=== PATIENT | female | born 1985 | race Two or more races ===

== ENCOUNTER 2020-06-10 10:51 | Outpatient (REF) | payer OTHER, SELFPAY ==
--- NOTE | 2020-06-10 | US_ITS ---
EXAMINATION: PELVIC ULTRASOUND CLINICAL INFORMATION: Fibroids COMPARISON: Previous CT of the abdomen and pelvis most recent March 2017 TECHNIQUE: Transabdominal and transvaginal pelvic ultrasound was performed. Transvaginal exam was performed for better visualization of the uterus and ovaries. FINDINGS: The uterus is anteverted and measures 9.6 x 5.4 x 6 cm in dimension. There are 2 small hypoechoic lesions in the anterior body of the uterus measuring 1.6 x 0.8 x 0.9 cm and in the posterior body of the uterus measuring 1.4 x 0.7 x 1.7 cm suggestive of small fibroids. No other focal uterine lesion is seen. Endometrial thickness is normal estimated at 0.8 cm. The cervix is normal. The right ovary is normal-appearing and measures 3.1 x 2.4 x 2 cm. The left ovary is slightly enlarged and measures 3.4 x 3.1 x 2.6 cm, volume 14 mL. There is a 2.7 x 1.8 x 1.7 cm minimally complex left ovarian cyst with cyst within cyst appearance and single thin septation. There is no fluid in the pelvis. US/US pelvic complete IMPRESSION: 2 small uterine fibroids. Slightly enlarged left ovary with 2.7 x 1.8 x 1.7 cm slightly complex cyst.
--- NOTE | 2020-06-10 | US_ITS ---
EXAMINATION: PELVIC ULTRASOUND CLINICAL INFORMATION: Fibroids COMPARISON: Previous CT of the abdomen and pelvis most recent March 2017 TECHNIQUE: Transabdominal and transvaginal pelvic ultrasound was performed. Transvaginal exam was performed for better visualization of the uterus and ovaries. FINDINGS: The uterus is anteverted and measures 9.6 x 5.4 x 6 cm in dimension. There are 2 small hypoechoic lesions in the anterior body of the uterus measuring 1.6 x 0.8 x 0.9 cm and in the posterior body of the uterus measuring 1.4 x 0.7 x 1.7 cm suggestive of small fibroids. No other focal uterine lesion is seen. Endometrial thickness is normal estimated at 0.8 cm. The cervix is normal. The right ovary is normal-appearing and measures 3.1 x 2.4 x 2 cm. The left ovary is slightly enlarged and measures 3.4 x 3.1 x 2.6 cm, volume 14 mL. There is a 2.7 x 1.8 x 1.7 cm minimally complex left ovarian cyst with cyst within cyst appearance and single thin septation. There is no fluid in the pelvis. US/US transvaginal IMPRESSION: 2 small uterine fibroids. Slightly enlarged left ovary with 2.7 x 1.8 x 1.7 cm slightly complex cyst.
== END 2020-06-10 10:52 | disposition home or self-care (01) ==
LOC: HO.US 10:51
PROVIDERS: PCP Internal Medicine Geriatric Medicine; Visit Provider Advanced Practice Midwife
DX: D25.9 Leiomyoma of uterus, unspecified (principal); N92.0 Excessive and frequent menstruation with regular cycle
CPT/HCPCS: 76830; 76856

== ENCOUNTER 2020-10-25 09:51 | Outpatient (REF) | payer OTHER, SELFPAY ==
--- NOTE | ~2020-10-25 | MM_ITS ---
EXAMINATION: MM DIAGNOSTIC DIGITAL BREAST TOMOSYNTHESIS, BILATERAL US TARGETED BREAST ULTRASOUND, RIGHT CLINICAL INFORMATION: Right breast lump 9 o'clock position. The lifetime risk of breast cancer based on the Tyrer-Cuzick Model is 14%. COMPARISON: Mammography: None TECHNIQUE: Digital breast tomosynthesis is performed in both the craniocaudal and mediolateral oblique views along with computer-aided detection (CAD). Synthesized 2D images are generated from the tomosynthesis. Targeted right breast ultrasound. FINDINGS: The breasts are heterogeneously dense, which may obscure small masses (ACR BI-RADS breast composition Category c). There are no significant masses, abnormal calcifications, or other abnormalities. Targeted right breast ultrasound was performed. At approximately 9 o'clock position in region of palpable abnormality, there are a few simple 4 mm cysts. No suspicious solid mass identified. No region of abnormal distal sound shadowing. Results are provided to the patient at time of visit by the technologist. MM/MM tomosynthesis diagnostic BI IMPRESSION: No specific mammographic or ultrasound findings to suggest malignancy. ASSESSMENT: BI-RADS 1: Negative. RECOMMENDATION: Clinical followup. This patient's information was entered into a reminder system with a target due date for their next mammogram.
--- NOTE | ~2020-10-25 | US_ITS ---
EXAMINATION: US DIAGNOSTIC ULTRASOUND BREAST, RIGHT CLINICAL INFORMATION: Lump 9:00 position. COMPARISON: Mammography of same day. TECHNIQUE: Ultrasound of the breast is performed with real-time javier scale imaging and color Doppler. FINDINGS: There is no focal suspicious finding. There is no solid mass, architectural abnormality, duct ectasia, or edema in the soft tissue planes. There are a few 4 mm simple cysts present in region of palpable abnormality. Results are discussed with the patient at time of visit. US/US breast RT limited IMPRESSION: No specific ultrasound findings to suggest malignancy. ASSESSMENT: BI-RADS 1: Negative RECOMMENDATION: Clinical follow-up .
== END 2020-10-25 09:52 | disposition home or self-care (01) ==
LOC: HO.MAMMO 09:51
PROVIDERS: Visit Provider Advanced Practice Midwife
DX: N63.15 Unspecified lump in the right breast, overlapping quadrants (principal)
CPT/HCPCS: 76642; 77062; 77066

== ENCOUNTER 2021-05-07 15:15 | Outpatient (REF) | payer OTHER, SELFPAY ==
--- NOTE | ~2021-05-07 | US_ITS ---
EXAMINATION: US THYROID CLINICAL INFORMATION: Nontoxic multinodular goiter. COMPARISON: None. TECHNIQUE: Linear transducer grayscale and color Doppler examination with attention to the region of the thyroid. FINDINGS: SIZE: Measurements of the thyroid lobes and nodules are given in sagittal, anteroposterior and transverse dimensions respectively. Right Thyroid Lobe: 4.19 x 1.23 x 1.39 cm, volume 3.76 mL. Parenchyma: The gland echotexture is homogeneous. Thyroid vascularity is normal. Left Thyroid Lobe: 4.22 x 1.17 x 1.55 cm, volume 4.00 mL. Parenchyma: The gland echotexture is homogeneous. Thyroid vascularity is normal. Isthmus: 0.26 cm in maximum AP dimension. Estimated total number of nodules greater than or equal to 1 cm: 0. [employer] nodules are described as follows: 1. Location: Right mid. Size: 0.63 x 0.37 x 0.37 cm, volume 0.05 mL. Nodule characteristics: Composition: Cystic(0). ACR TI-RADS total points: 0 ACR TI-RADS category: 1 2. Location: Right inferior. Size: 0.21 x 0.23 x 0.19 cm, volume 0.005 mL. Nodule characteristics: Composition: Cystic(0). ACR TI-RADS total points: 0 ACR TI-RADS category: 1 NODES: No lymphadenopathy is seen in the tissue surrounding the thyroid gland. US/US thyroid IMPRESSION: Homogeneous thyroid parenchyma with normal vascularity. No thyromegaly. Right-sided thyroid nodules measuring up to 0.6 cm with ultrasound characteristics consistent with TI-RADS category 1. No follow-up recommended. ACR TI-RADS RECOMMENDATION REFERENCE: Ultrasound-guided fine-needle aspiration, followup ultrasound, no further follow up. * TR1 (0 point) and TR 2 (2 points): No FNA or follow up * TR3 (3 points): FNA if more than or equal to 2.5 cm in maximum dimension, followup ultrasound in 1, 3 and 5 years if 1.5 to 2.4 cm in maximum dimension. * TR4 (4-6 points): FNA if more than or equal to 1.5 cm in maximum dimension, followup ultrasound in 1, 2, 3 and 5 years if 1 to 1.4 cm in maximum dimension. * TR5 (more than or equal to 7 points): FNA if more than or equal to 1 cm in maximum dimension, followup ultrasound every year for 5 years if 0.5 to 0.9 cm in maximum dimension. * TR3, TR4 or TR5 nodules that are below the size threshold for follow up receive no follow up.
== END 2021-05-07 15:16 | disposition home or self-care (01) ==
LOC: HO.HMGCX 15:15
PROVIDERS: PCP Internal Medicine Geriatric Medicine; Visit Provider Internal Medicine Geriatric Medicine
DX: E04.1 Nontoxic single thyroid nodule (principal)
CPT/HCPCS: 76536

== ENCOUNTER 2021-09-10 15:36 | Outpatient (REF) | payer MEDICAID, SELFPAY ==
--- NOTE | ~2021-09-10 | US_ITS ---
EXAMINATION: US PELVIS CLINICAL INFORMATION: Excessive and frequent menses. History of IUD. COMPARISON: Pelvic ultrasound from 06/10/2020 TECHNIQUE: Ultrasound of the pelvis is performed using both transabdominal and transvaginal transducers along with Doppler. Transvaginal imaging is performed due to inadequate visualization transabdominally. FINDINGS: UTERUS AND CERVIX The anteflexed, anteverted uterus measures 11.9 x 6 x 6.8 cm ([id number] x AP x transverse dimension). The cervix is normal, approximately 3.5 in length. A heterogeneously hypoechoic structure in the anterior uterine body, consistent with intramural leiomyoma, measures 1.3 x 0.6 x 0.8 cm (1.6 cm maximum dimension on 06/10/2020). A posterior uterine body leiomyoma measures 1.9 x 1.2 x 2 cm (previously 1.7 cm maximum dimension on 06/10/2020). The endometrium, which has normal echotexture, is 0.7 cm in AP thickness. No evidence of endometrial polyp or submucosal leiomyoma. In this patient with history of IUD placement, no intrauterine device is sonographically detected. ADNEXA: Normal. No adnexal masses. The right ovary is 2.9 x 1.2 x 2 cm, volume of 3.6 mL. The left ovary is 3.1 x 2.1 x 2.1 cm, volume of 7 mL. FREE FLUID: None. US/US pelvic and transvaginal IMPRESSION: * The two intramural leiomyomas of the uterus have not significantly changed in size compared to 06/10/2020. * The endometrium has a normal appearance. * Although there is history of intrauterine contraceptive device placement, no IUD is seen. * The ovaries are normal.
== END 2021-09-10 15:37 | disposition home or self-care (01) ==
LOC: HO.US 15:36
PROVIDERS: PCP Internal Medicine Geriatric Medicine; Visit Provider Advanced Practice Midwife
DX: N92.0 Excessive and frequent menstruation with regular cycle (principal); T83.32XA Displacement of intrauterine contraceptive device, initial encounter
CPT/HCPCS: 76830; 76856

== ENCOUNTER 2022-05-19 15:53 | Outpatient (REF) | payer MEDICAID, SELFPAY | END 2022-05-19 15:54 | disposition home or self-care (01) | LOC: HO.MAMMO 15:53 | PROVIDERS: PCP Internal Medicine Geriatric Medicine; Visit Provider Internal Medicine Geriatric Medicine | DX: Z13.89 Encounter for screening for other disorder (principal) ==

== ENCOUNTER 2022-06-29 13:48 | Outpatient (REF) | payer MEDICAID, SELFPAY ==
--- NOTE | ~2022-06-29 | MM_ITS ---
EXAMINATION: MM DIAGNOSTIC DIGITAL BREAST TOMOSYNTHESIS, BILATERAL US DIAGNOSTIC ULTRASOUND BREAST, BILATERAL CLINICAL INFORMATION: Bilateral mastodynia for approximately 3 weeks upper outer quadrants. No palpable mass or discharge. Age 37. The lifetime risk of breast cancer based on the Tyrer-Cuzick Model is 15%. COMPARISON: Mammography: 10/25/2020 (diagnostic baseline), targeted right breast ultrasound 10/25/2020. TECHNIQUE: Digital breast tomosynthesis is performed in both the craniocaudal and mediolateral oblique views along with computer-aided detection (CAD). Synthesized 2D images are generated from the tomosynthesis. Ultrasound bilateral breasts is targeted to the areas of clinical concern upper outer quadrants. Grayscale imaging and color Doppler are performed without and with harmonics. FINDINGS: The breasts are heterogeneously dense, which may obscure small masses (ACR BI-RADS breast composition Category c). Denser breast parenchymal pattern is predominantly in the upper outer quadrants. The parenchymal pattern is similar to the prior baseline exam. There is no interval mass or architectural abnormality. There are no abnormal calcifications. Skin contours are smooth. No skin thickening or coarsening of the Kike's ligaments. The axilla are unremarkable. Ultrasound bilateral breasts demonstrate no cystic or solid mass, architectural abnormality, or focal duct ectasia. No skin thickening or edema tracking in soft tissue planes. Results are discussed with the patient at time of visit. MM/MM tomosynthesis diagnostic BI IMPRESSION: -No mammographic evidence of malignancy or inflammatory changes. -Unremarkable bilateral targeted breast ultrasound. ASSESSMENT: BI-RADS 1: Negative RECOMMENDATION: 1. Patient's bilateral breast pain should be managed based on the clinical impression. 2. Otherwise, routine annual screening mammography, by age 40, or earlier as clinical risk factors warrant. This patient's information was entered into a reminder system with a target due date for their next mammogram.
== END 2022-06-29 13:49 | disposition home or self-care (01) ==
LOC: HO.MAMMO 13:48
PROVIDERS: PCP Internal Medicine Geriatric Medicine; Visit Provider Advanced Practice Midwife
DX: N63.11 Unspecified lump in the right breast, upper outer quadrant (principal); N64.4 Mastodynia
CPT/HCPCS: 76642; 77062; 77066

== ENCOUNTER 2022-09-21 16:55 | Outpatient (RCR) | payer MEDICAID, SELFPAY | END 2022-10-07 12:03 | disposition home or self-care (01) | LOC: HO.PT 16:55 | PROVIDERS: PCP Internal Medicine Geriatric Medicine; Visit Provider Advanced Practice Midwife | DX: N81.10 Cystocele, unspecified (principal); N94.10 Unspecified dyspareunia | CPT/HCPCS: 97162 ==

== ENCOUNTER 2023-04-21 10:14 | Outpatient (REF) | payer MEDICAID, SELFPAY ==
[2023-04-21 11:23] LABS: MANUAL DIFF FLAG NO
[2023-04-21 11:42] LABS: Basophils Absolute Auto 0.1 X10*3/uL (0.0-0.2); Basophils Percent Auto 0.8 % (0-2); Eosinophils Absolute Auto 0.1 X10*3/uL (0.0-0.4); Eosinophils Percent Auto 0.8 % (0-4); Hematocrit 31.5 % (37.0-47.0); Hemoglobin 9.5 g/dl (12.0-16.0); Imm Gran Abs Auto 0.02 X10*3/uL (0.00-0.03); Imm Gran Pct Auto 0.3 % (0.0-0.4); Lymphocytes Absolute Auto 1.8 X10*3/uL (1.2-4.9); Mean Corpuscular HGB Conc 30.2 g/dl (31.0-35.0); Mean Corpuscular Hemoglobin 19.8 pg (27.0-33.0); Mean Corpuscular Volume 65.8 fL (80.0-98.0); Mean Platelet Volume 9.3 fL (9.4-12.3); Monocytes Absolute Auto 0.6 X10*3/uL (0.1-1.2); Monocytes Percent Auto 8.2 % (2-11); Neutrophils Absolute Auto 4.7 x10*3/uL (2.0-8.3); Neutrophils Percent Auto 64.9 % (45-73); Platelet Count 383 X10*3/uL (160-400); Red Blood Count 4.79 X10*6/uL (4.20-5.50); White Blood Count 7.3 X10*3/uL (4.8-10.8)
[2023-04-21 12:17] LABS: Anion Gap 11 (12-20); Blood Urea Nitrogen 10 mg/dL (9-16); Calcium 9.2 mg/dL (8.4-10.2); Carbon Dioxide 26 mmol/L (22-29); Chloride 107 mmol/L (96-108); Estimated Glomerular Filt Rate > 60; Ferritin 7 ng/mL (10-122); Glucose Random 95 mg/dL (60-115); Iron 22 mcg/dL (30-160); Percent Iron Saturation 6 % (15-50); Potassium 3.8 mmol/L (3.3-5.1); Sodium 140 mmol/L (135-145); Total Iron Binding Capacity 358 mcg/dL (228-428); Unsaturated Iron Binding 336 ug/dL
== END 2023-04-21 10:15 | disposition home or self-care (01) ==
LOC: HO.HHCL 10:14
PROVIDERS: Visit Provider Internal Medicine Geriatric Medicine
DX: D50.9 Iron deficiency anemia, unspecified (principal); G43.909 Migraine, unspecified, not intractable, without status migrainosus; Z79.1 Long term (current) use of non-steroidal anti-inflammatories (NSAID)
CPT/HCPCS: 36415; 80048; 82728; 83540; 85025

== ENCOUNTER 2023-06-08 09:37 | Outpatient (REF) | payer MEDICAID, SELFPAY ==
--- NOTE | ~2023-06-08 | XR_ITS ---
EXAMINATION: XR LUMBOSACRAL SPINE WITH OBLIQUES CLINICAL INFORMATION: Low back pain for one month after fall with sacroiliac pain and heel numbness COMPARISON: None available. TECHNIQUE: AP, both oblique, and lateral views of the lumbar spine. Lateral view of the lumbosacral junction. FINDINGS: The vertebral bodies and posterior elements are normal. The disc spaces are preserved and the vertebral alignment is normal. The paraspinal soft tissues are normal. The sacrum and sacroiliac joints are unremarkable. XR/XR lumbar spine 4V min IMPRESSION: Unremarkable examination.
== END 2023-06-08 09:38 | disposition home or self-care (01) ==
LOC: HO.HHCX 09:37
PROVIDERS: Visit Provider Internal Medicine Geriatric Medicine
DX: M53.3 Sacrococcygeal disorders, not elsewhere classified (principal); M54.50 Low back pain, unspecified
CPT/HCPCS: 72110

== ENCOUNTER → 2023-07-02 09:40 | Outpatient (BNV) | payer SELFPAY | PROVIDERS: PCP Internal Medicine Geriatric Medicine; Visit Provider Internal Medicine | DX: D50.0 Iron deficiency anemia secondary to blood loss (chronic) (principal); N92.0 Excessive and frequent menstruation with regular cycle | CPT/HCPCS: 99204 ==

== ENCOUNTER 2023-12-13 12:00 | Outpatient (REF) | payer MEDICAID, SELFPAY ==
[2023-12-13 16:34] LABS: Hematocrit 31.3 % (37.0-47.0); Hemoglobin 9.5 g/dl (12.0-16.0); Mean Corpuscular HGB Conc 30.4 g/dl (31.0-35.0); Mean Corpuscular Hemoglobin 20.7 pg (27.0-33.0); Mean Platelet Volume 9.4 fL (9.4-12.3); Platelet Count 385 X10*3/uL (160-400); Red Cell Distribution Width 20.4 % (11.0-16.0); White Blood Count 9.2 X10*3/uL (4.8-10.8)
[2023-12-13 17:25] LABS: Ferritin 9 ng/mL (10-122)
[2023-12-15 18:13] LABS: RPR Rapid Plasma Reagin NON-REACTIVE (NON-REACTIVE)
== END 2023-12-13 12:01 | disposition home or self-care (01) ==
LOC: HO.HHCL 12:00
PROVIDERS: Internal Medicine; Visit Provider Emergency Medicine
DX: D64.9 Anemia, unspecified (principal); R21 Rash and other nonspecific skin eruption
CPT/HCPCS: 36415; 82728; 85027; 86592; 87070; 87205; 87798

== ENCOUNTER 2024-03-14 09:38 | Outpatient (REF) | payer MEDICAID, SELFPAY ==
--- NOTE | ~2024-03-14 | XR_ITS ---
EXAMINATION: XR LUMBOSACRAL SPINE CLINICAL INFORMATION: Acute left-sided low back pain without sciatica COMPARISON: Frontal and lateral views 06/08/23 TECHNIQUE: Three views of the lumbosacral spine. FINDINGS: There are 5 intact lumbar-type vertebrae in normal alignment. No focal lesion or loss of volume. No significant disc narrowing. No suspicious paraspinal abnormality. Suspect previous tubal ligation XR/XR lumbar spine 2-3V IMPRESSION: 1. No fracture or subluxation. Electronically signed by: Dante Caputo MD 03/19/2024 08:57 PM EDT
== END 2024-03-14 09:39 | disposition home or self-care (01) ==
LOC: HO.HHCX 09:38
PROVIDERS: Visit Provider Internal Medicine
DX: M54.50 Low back pain, unspecified (principal)
CPT/HCPCS: 72100

== ENCOUNTER 2024-06-26 12:36 | Outpatient (REF) | payer MEDICAID, SELFPAY ==
--- NOTE | ~2024-06-26 | XR_ITS ---
EXAMINATION: XR CHEST CLINICAL INFORMATION: bilateral axillary and vianca breast pain. Diffuse tenderness COMPARISON: Chest x-ray on 12/18/2015 TECHNIQUE: 2 views of the chest were obtained. FINDINGS: No significant abnormality is noted involving the heart, lungs, mediastinum, bony thorax or soft tissues. XR/XR chest 2V IMPRESSION: Unremarkable examination. Electronically signed by: Lila Marino MD 06/26/2024 04:05 PM [facility]
[2024-06-26 17:43] LABS: TSH reflex Free T4 1.53 uIU/mL (0.32-4.0)
[2024-06-28 09:04] LABS: Prolactin Undiluted 4.9 ng/mL
== END 2024-06-26 12:37 | disposition home or self-care (01) ==
LOC: HO.HHCL 12:36
PROVIDERS: Visit Provider Nurse Practitioner Family
DX: N64.4 Mastodynia (principal); M79.629 Pain in unspecified upper arm
CPT/HCPCS: 36415; 71046; 83001; 84146; 84443

== ENCOUNTER → 2024-12-01 15:10 | Outpatient (BNVA) | payer SELFPAY | PROVIDERS: PCP Internal Medicine Geriatric Medicine; Visit Provider Physician Assistant | DX: Z02.79 Encounter for issue of other medical certificate (principal) ==

== ENCOUNTER 2025-04-30 14:20 | Outpatient (REF) | payer MEDICAID, SELFPAY ==
--- OUTSIDE RECORDS SUMMARY | 2025-04-30 13:40 | XMS_ITS | Encounter Summary ---
Author Organization [email or web address] Address [address] [facility] [address] [place] [address] Care Team Providers Care Electrical Tests Supervisor Name Role Phone Name, Royal LEON Primary Care Provider [phone] Reason for Referral * Cardiology (Routine) - Pending Review Specialty Diagnoses / Procedures Referred By Rafy hummel Referred To Contact Cardiology Diagnoses Palpitations Procedures Holter monitor - 48 hour Gisell Matthew NP [address] [place] [address] Phone: tel: fax: [facility] Referral ID Status Reason Start Date Expiration Date V isits Requested Visits Authorized [id number] Pending Review 04/30/2025 04/30/2026 1 1 Reason for Visit * Reason Comments Dizziness Encounter Details Date Type Department Care Team (Late st Contact Info) Description 04/30/2025 1:40 PM EDT Office Visit [facility] [address] [place], [place] [id number] Palpitations (Primary Dx); Dizziness Social History Tobacco Use Types Packs/Day Years Used Date Smoking Tobacco: Never Smokeless Tobacco: Never Alcohol Use Standard Drinks/Week Comments Never 0 (1 standard drink = 0.6 oz pur e alcohol) Depression Answer Date Recorded Patient Health Questionnaire-9 Score 6 10/11/2023 Patient Health Questionnaire-9 Score 6 10/11/2023 Last PHQ-9: Questionnaire Data Not on file 0 10/11/2023 Housing Stability Answer Date Recorded What is your housing situation today? I have bertha aden 09/30/[address] you li ve. Do you have problems with any of the following? None of the above 09/30/2023 Food Insecurity Answer Date Recorded Within the past 12 months, y ou worried that your food would run out before you got money to buy more: Often true 09/30/2023 Within the past 12 months,th e food you bought just didn't last and you didn't have enough money to get more: Often true 01/2024 Transportation Answer Date Recorded In the past 12 months, has l ack of transportation kept you from medical appts, meetings, work or from getting things needed for daily living? No 09/30/2023 Utilities Answer Date Recorded In the past 12 months, has t he electric, gas, oil or water company threatened to shut off services in your home? No 09/30/2023 Depression Answer Date Recorded Patient Health Questionnaire-2 Score 2 10/11/2023 Comments No Sex and Gender Information Value Date Recorded Sex Assigned at Female 05/25/2022 10:29 AM EDT Legal Sex Female 10:29 AM EDT Gender Identity Female 05/25/2022 10:29 AM EDT Sexual Orientation Straight 05/25/2022 10 :29 AM EDT documented as of this encounter Last Filed Vital Signs Vital Sign Reading Time Taken Comments Blood Pressure 118/82 04/30/2025 2:01 PM EDT Pulse 78 04/30/2025 1:32 PM EDT Temperature 37.4 C (99.3 F) 04/30/2025 1:32 PM EDT Respiratory Rate 17 04/30/2025 1:32 PM EDT Oxygen Saturation 99% 04/30/2025 1:32 PM EDT Inhaled Oxygen Concentration - - Weight 79.6 kg (175 lb 6.4 oz) 04/30/2025 1:32 P M EDT Height 152.4 cm (5') 04/30/2025 1:32 PM EDT Body Mass Index 34.26 04/30/2025 1:32 PM EDT documented in this encounter Miscellaneous Notes * Patient Education Note - Gisell Matthew NP - 04/30/2025 5:53 PM EDT Images from the original note were not included. Patient Education Table of Contents How to Perform the Paradise Maneuver To view videos and all your education online visit, [email or web address] or scan this QR code with your smartphone. Access to this content will in one year. How to Perform the Paradise Maneuver The Paradise maneuver is an exercise that relieves symptoms of vertigo. Vertigo is the feeling that you or your surroundings are moving when they are not. When you feel vertigo, you may feel like the room is spinning and may have trouble walking. The Paradise maneuver is used for a type of vertigo causedby a calcium deposit in a part of the inner ear. The maneuver involves changing head positions to help the deposit move out of the area. You can do this maneuver at home whenever you have symptoms of vertigo. You can repeat it in 24 hours if your vertigo has not gone away. Even though the Paradise maneuver may relieve your vertigo for a few weeks, it is possible that your symptoms will return. This maneuver relieves vertigo, but it does not relieve dizziness. What are the risks? If it is done correctly, the Paradise maneuver is considered safe. Sometimes it can lead to dizziness or nausea that goes away after a short time. If you develop other symptoms?such as changes in vision, weakness, or numbness?stop doing the maneuver and call your health care provider. Supplies needed: A bed or table. A pillow. How to do the Paradise maneuver 1. Sit on the edge of a bed or table with your back straight and your legs extended or hanging overthe edge of the bed or table. Turn your head nursing home toward the affected ear or side as told by your health care provider. Lie backward quickly with your head turned until you are lying flat on your back. Your head should dangle (head-hanging position). You may want to position a pillow under your shoulders. Hold this position for at least 30 seconds. If you feel dizzy or have symptoms of vertigo, continueto hold the position until the symptoms stop. Turn your head to the opposite direction until your unaffected ear is facing down. Your head shouldcontinue to dangle. Hold this position for at least 30 seconds. If you feel dizzy or have symptoms of vertigo, continueto hold the position until the symptoms stop. Turn your whole body to the same side as your head so that you are positioned on your side. Your head will now be nearly facedown and no longer needs to dangle. Hold for at least 30 seconds. If you feel dizzy or have symptoms of vertigo, continue to hold the position until the symptoms stop. Sit back up. You can repeat the maneuver in 24 hours if your vertigo does not go away. Follow these instructions at home: For 24 hours after doing the Paradise maneuver: Keep your head in an upright position. When lying down to sleep or rest, keep your head raised (elevated) with two or more pillows. Avoid excessive neck movements. Activity Do not drive or use machinery if you feel dizzy. After doing the Paradise maneuver, return to your normal activities as told by your health care provider. Ask your health care provider what activities are safe for you. General instructions Drink enough fluid to keep your urine pale yellow. Do not drink alcohol. Take irft-jhn-kwkzwlb and prescription medicines only as told by your health care provider. Keep all follow-up visits. This is important. Preventing vertigo symptoms Ask your health care provider if there is anything you should do at home to prevent vertigo. He or she may recommend that you: Keep your head elevated with two or more pillows while you sleep. Do not sleep on the side of your affected ear. Get up slowly from bed. Avoid sudden movements during the day. Avoid extreme head positions or movement, such as looking up or bending over. Contact a health care provider if: Your vertigo gets worse. You have other symptoms, including: ? Nausea. ? Vomiting. ? Headache. Get help right away if you: Have vision changes. Have a headache or neck pain that is severe or getting worse. Cannot stop vomiting. Have new numbness or weakness in any part of your body. These symptoms may represent a serious problem that is an emergency. Do not wait to see if the symptoms will go away. Get medical help right away. Call your local emergency services (911 in the [place] Do not drive yourself to the hospital. Summary Vertigo is the feeling that you or your surroundings are moving when they are not. The Paradise maneuver is an exercise that relieves symptoms of vertigo. If the Paradise maneuver is done correctly, it is considered safe. This information is not intended to replace advice given to you by your health care provider. Make sure you discuss any questions you have with your health care provider. Document Released: 2014-07-17 Document Updated: 2024-04-07 Document Reviewed: 2024-04-07 Elsevier Patient Education ? 2024 [employer]. * Patient Education Note - Gisell Matthew NP - 04/30/2025 5:51 PM EDT Images from the original note were not included. Patient Education Table of Contents Vertigo To view videos and all your education online visit, [email or web address] or scan this QR code with your smartphone. Access to this content will in one year. Vertigo Vertigo is the feeling that you or the things around you are moving or spinning when they're not. It's different than feeling dizzy. It can also cause: Loss of balance. Trouble standing or walking. Nausea and vomiting. This feeling can come and go at any time. It can last from a few seconds to minutes or even hours. It may go away on its own or be treated with medicine. What are the types of vertigo? There are two types of vertigo: Peripheral vertigo happens when parts of your inner ear don't work like they should. This is the more common type. Central vertigo happens when your brain and spinal cord don't work like they should. Your health care provider will do tests to find out what kind of vertigo you have. This will help them decide on the right treatment for you. Follow these instructions at home: Eating and drinking Drink enough fluid to keep your pee (urine) pale yellow. Do not drink alcohol. Activity When you get up in the morning, first sit up on the side of the bed. When you feel okay, stand slowly while holding onto something. Move slowly. Avoid sudden body or head movements. Avoid certain positions, as told by your provider. Use a cane if you have trouble standing or walking. Sit down right away if you feel unsteady. Place items in your home so they're easy for you to reach without bending or leaning over. Return to normal activities when you're told. Ask what things are safe for you to do. General instructions Take your medicines only as told by your provider. Contact a health care provider if: Your medicines don't help or make your vertigo worse. You get new symptoms. You have a fever. You have nausea or vomiting. Your family or friends spot any changes in how you're acting. A part of your body goes numb. You feel tingling and prickling in a part of your body. You get very bad headaches. Get help right away if: You're always dizzy or you faint. You have a stiff neck. You have trouble moving or speaking. Your hands, arms, or legs feel weak. Your hearing or eyesight changes. These symptoms may be an emergency. Call 911 right away. Do not wait to see if the symptoms will go away. Do not drive yourself to the hospital. This information is not intended to replace advice given to you by your health care provider. Make sure you discuss any questions you have with your health care provider. Document Released: 2006-04-21 Document Updated: 2024-04-13 Document Reviewed: 2023-10-15 [employer] Patient Education ? 2024 [employer] documented in this encounter Plan of Treatment Pending Results Name Type Priority Associated Diagnoses Date /Time Iron And Total Iron Binding Capacity Lab Routine Palpitations 04/30/2025 2:26 PM EDT Scheduled Orders Name Type Priority Associated Diagnoses Orde r Schedule TSH W/Reflex to FT4 Lab Routine Palpitations Expected: 04/30/2025 (Approximate), Expires: 04/30/2026 Holter monitor - 48 hour Cardiac Services Routine Palpitations Expected: 04/30/2025 (Approximate), Expires: 04/30/2027 documented as of this encounter Procedures Procedure Name Priority Date/Time Associated Diagnosis Comments CBC WITH AUTO DIFFERENTIAL Routine 04/30/2025 2:26 PM EDT Palpitations IRON AND TOTAL IRON BINDING CAPACITY Routine 04/30/2025 2:26 PM EDT Palpitations POCT , URINE Routine 04/30/2025 1:40 PM EDT Dizziness documented in this encounter Results * (ABNORMAL) CBC auto differential (04/30/2025 2:26 PM EDT) White Blood Count 11.3(H) 4.8 - 10.8 X10*3/uL [facility] Red Blood Count 4.56 4.20 - 5.50 X10*6/uL [facility] Hemoglobin 8.8(L) 12.0 - 16.0 g/dl [facility] Hematocrit 29.0(L) 37.0 - 47.0 % [facility] Mean Corpuscular Volume 63.6(L) 80.0 - 98.0 fL [facility] Mean Corpuscular Hemoglobin 19.3(L) 27.0 - 33.0 pg [facility] Mean Corpuscular HGB Conc 30.3(L) 31.0 - 35.0 g/dl [facility] Red Cell Distribution Width 21.7(H) 11.0 - 16.0 % [facility] Platelet Count 347 160 - 400 X10*3/uL [facility] Mean Platelet Volume 9.1(L) 9.4 - 12.3 fL [facility] Neutrophils Percent Auto 76.7(H) 45 - 73 % [facility] Imm Gran Pct Auto 0.4 0.0 - 0.4 % [facility] Lymphocytes Percent Auto 15.2(L) 20 - 40 % [facility] Monocytes Percent Auto 6.8 2 - 11 % [facility] Eosinophils Percent Auto 0.4 0 - 4 % [facility] Basophils Percent Auto 0.5 0 - 2 % [facility] NRBC Pct Auto 0.0 0.0 - 0.2 /100WBC [facility] Neutrophils Absolute Auto 8.7(H) 2.0 - 8.3 x10*3/uL [facility] Imm Gran Abs Auto 0.05(H) 0.00 - 0.03 X10*3/uL [facility] Lymphocytes Absolute Auto 1.7 1.2 - 4.9 X10*3/uL [facility] Monocytes Absolute Auto 0.8 0.1 - 1.2 X10*3/uL [facility] Eosinophils Absolute Auto 0.0 0.0 - 0.4 X10*3/uL [facility] Basophils Absolute Auto 0.1 0.0 - 0.2 X10*3/uL [facility] NRBC Abs Auto 0.000 0.0 - 0.012 X10*3/uL [facility] Blood Venous blood specimen / Unknown 04/30/2025 2:26 PM EDT 04/30/2025 4:00 PM EDT Gisell Matthew [employer] PHOTOGR[employer]HER LAB BLOOD ORDERABLES Final Resu lt [facility] [address] [place] [address] [phone] * POCT Urine (04/30/2025 1:40 PM EDT) Preg Test, Ur Negative Negative, Indeterminate, None Detected, Invalid, Specimen unsatisfactory for evaluation, Weakly Positive, 2+ QC Media Lot # [id number] Lot# Expiration Date [id number] Urine 04/30/2025 1:40 PM EDT Gisell Matthew [employer]ELANCE PHOTOGR[employer]HER POINT OF CARE TEST ENTER/EDIT O RDERABLES Final Result documented in this encounter Visit Diagnoses Diagnosis Palpitations- Primary Dizziness Dizziness and giddiness documented in this encounter Additional Health Concerns Assessment Noted Time PHQ-9 Depression Total Score: 6 10/11/19 24 10:38 AM EDT documented as of this encounter Care Teams Electrical Tests Supervisor Relationship Specialty Start Date End Date Name, MD Royal [address] [place] [id number] PCP - General Family Medicine 11/21/15 documented as of this encounter
[2025-04-30 16:03] LABS: MANUAL DIFF FLAG NO
[2025-04-30 16:15] LABS: Hematocrit 29.0 % (37.0-47.0); Hemoglobin 8.8 g/dl (12.0-16.0); Imm Gran Abs Auto 0.05 X10*3/uL (0.00-0.03); Imm Gran Pct Auto 0.4 % (0.0-0.4); Lymphocytes Absolute Auto 1.7 X10*3/uL (1.2-4.9); Mean Corpuscular HGB Conc 30.3 g/dl (31.0-35.0); Mean Corpuscular Hemoglobin 19.3 pg (27.0-33.0); NRBC Abs Auto 0.000 X10*3/uL (0.0-0.012); NRBC Pct Auto 0.0 /100WBC (0.0-0.2); Platelet Count 347 X10*3/uL (160-400); Red Blood Count 4.56 X10*6/uL (4.20-5.50); White Blood Count 11.3 X10*3/uL (4.8-10.8)
[2025-04-30 16:16] LABS: Mean Corpuscular Volume 63.6 fL (80.0-98.0)
[2025-04-30 16:32] LABS: Iron 27 mcg/dL (30-160); Percent Iron Saturation 7 % (15-50); Total Iron Binding Capacity 380 mcg/dL (228-428); Unsaturated Iron Binding 353 ug/dL
--- OUTSIDE RECORDS SUMMARY | 2025-04-30 16:50 | XMS_ITS | Clinical Summary ---
Author Organization [employer] Address [address] [facility] 7t [place] [address] Care Team Providers Care Medical Record Assistant Name Role Phone Name, Royal LEON Primary Care Provider [phone] Allergies No known active allergies Medications * This document contains information received from the source organization and may not represent a complete record from that organization. traZODone (Desyrel) 50 MG tablet Take 1 tablet (50 mg) by mouth at bedtime. 30 tablet 11 4 Active Additional Information Patient not taking.Reported on 03/29/2025 sertraline (Zoloft) 100 MG tablet Take 1 tablet (100 mg) by mouth Once per day. 30 tablet 4 Active Additional Information Patient not taking.Reported on 03/29/2025 cyclobenzaprine (Flexeril) 10 MG tabletIndicatio ns:Acute left-sided low back pain without sciatica Take 1 tablet (10 mg) by mouth if needed in the morning, at noon, and at bedtime for muscle spasms for up to 10 days. 30 tablet 4 Active Additional Information Patient not taking.Reported on 03/29/2025 Blood Pressure kitIndications: Elevated blood pressure reading 1 kit if needed each day (as needed for blood pressure). 1 kit 4 Active meclizine (Antivert) 12.5 MG tabletIndicatio ns:Dizziness Take 1 tablet (12.5 mg) by mouth every 6 (six) hours if needed for dizziness or nausea. 120 tablet 5 05/30/20 25 Active Active Problems Problem Noted Date Diagnosed Date Pain in axilla 06/26/2024 Assessment & Plan (06/26/2024 2:42 PM EST): Bilateral axillary/chest wall pain unclear etiology, no sig hyperpigementation or cystic lesions Will order chest x-ray. No focal breast masses, Return to clinic in 2 weeks to review results Elevated blood pressure reading 06/26/2024 Assessment & Plan (07/22/2024 6:23 PM EST): Bp cuff prescribed, Pt has plans to focus on healthy habits and exercise, will Return to clinic for follow up bp after 3 months lifestyle regimen Assessment & Plan (06/26/2024 2:40 PM EST): Bp cuff prescribed Measured 3 x weekly until follow up Call for bp >160>100 or any symptoms. Return to clinic in 2 weeks to review readings Breast pain 06/25/2024 Assessment & Plan (07/22/2024 6:23 PM EST): Likely msk improved, no focal findings Assessment & Plan (06/26/2024 2:43 PM EST): Today pt presents with bilateral axillary chest wall pain, Reassuring breast exam, pt does endorse headaches and milky discharge with stimulation will repeat labs as ordered below Acute left-sided low back pain without sciatica 03/14/2024 Assessment & Plan (03/14/2024 11:35 AM EDT): Apply heat on affected area XRAY ordered today she will be contacted with results Panic attacks 09/22/2023 Class 1 obesity 04/21/2023 Right ear pain 03/22/2023 History of tubal ligation 09/25/2022 Allergic rhinitis 08/25/2022 Menorrhagia 08/25/2022 Thyroid nodule 08/25/2022 Tension-type headache 03/12/2017 Low back strain 10/20/2016 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) 02/04/2016 Iron deficiency anemia due to chronic blood loss 12/06/2015 JIM (generalized anxiety disorder) 11/21/2015 Heartburn 11/21/2015 Migraine without status migrainosus, not intract able 11/21/2015 Restless legs 11/21/2015 Vitamin D deficiency 11/21/2015 Resolved Problems Problem Noted Date Diagnosed Date Resolved Date Knee pain 08/25/2022 09/25/2022 Increased frequency of urination 03/11/2018 09/25/2022 Pain in lower limb 12/28/2017 Swelling of lower limb 12/28/201709/25 Blurring of visual image 05/04/201709/2022 Shoulder pain 05/04/2017 09/25/2022 Nocturia 03/12/2017 09/25/2022 Vertigo 05/15/2016 02/24/2024 Encounters Date Type Department Care Team Description 04/30/2025 1:40 PM EDT Office Visit [facility] [address] [place] [id number] Palpitations (Primary Dx); Dizziness 04/30/2025 Travel 03/29/[address] [facility] [address] [place], [place] [phone] Name, MD Royal from Last 3 Months Immunizations Immunization Administration Dates Next Due HPV, Quadrivalent 01/31/2014,08/28/2013,03/21/20 13 Hep B, adult 01/23/2016,12/26/2015 Influenza injectable quadriv alent preservative free 05/20/2023,06/11/2017 Influenza, IIV3, injectable 06/11/2017 MMR 12/26/2015,10/01/2010 Pfizer Covid-19 Vaccine 12+ 12/30/2021, 2 Pfizer Covid-19 Vaccine 12+ mainor-sucrose (Rojo Cap) 12/30/2021,12/09/2021 Tdap 04/08/2010 Social History Tobacco Use Types Packs/Day Years Used Date Smoking Tobacco: Never Smokeless Tobacco: Never Tobacco Cessation:Counseling Given: Not Answered Alcohol Use Standard Drinks/Week Comments Never 0 (1 standard drink = 0.6 oz pur e alcohol) Depression Answer Date Recorded Patient Health Questionnaire-9 Score 6 10/11/2023 Patient Health Questionnaire-9 Score 6 10/11/2023 Last PHQ-9: Questionnaire Data Not on file 0 10/11/2023 Housing Stability Answer Date Recorded What is your housing situation today? I have bertha sing 09/30/[address] you li [...] Orientation Straight 05/25/2022 10 :29 AM EDT Last Filed Vital Signs Vital Sign Reading [...] Mass Index 34.26 04/30/2025 1:32 PM EDT Plan of Treatment Health Maintenance Due Date Last Done Comments Family Planning (PISQ) 2001 Hepatitis C Screening 2004 Hepatitis B Vaccines (3 of 3 - 19+ 3-dose series) 06/26/2016 01/23/2016, 12/26/2015 DTaP/Tdap/Td Vaccines (2 - Td or Tdap) 04/08/2020 04/08/2010 SDOH Screening 09/29/2024 09/30/2023 Depression Screening 10/10/2024 10/11/2023, 10/11/19 24 COVID-19 Vaccine ( season) 2025 12/30/2021, 12/30/2021, 12/09/2021, Additional history exists Influenza Vaccine (#1) 2025 , 06/11/2017, 06/11/2017 Alcohol/Substance Use Screening 07/14/2025 07/14/2024 Tobacco Screening 07/14/2025 07/14/2024 Cervical Cancer Screening 10/22/2025 HPV/Cotest 10/22/2025 10/22/2020 Pap Smear 10/22/2025 10/22/2020 Disability Screening 04/30/2026 04/30/2025 Zoster Vaccines (1 of 2) 2036 RSV Patients and Patients Aged 60 years or older (1 - 1-dose 75+ series) 2061 HPV Vaccines Completed 01/31/2014, 09/2013, 03/21/2013 HIV Screening Completed 06/17/2022 HIB Vaccines Aged Out No longer eligi ble based on patient's age to complete this topic Hepatitis A Vaccines Aged Out No long er eligible based on patient's age to complete this topic IPV Vaccines Aged Out No longer eligi ble based on patient's age to complete this topic Meningococcal B Vaccine Aged Out No l onger eligible based on patient's age to complete this topic Meningococcal Vaccine Aged Out No lucas pravin eligible based on patient's age to complete this topic Pneumococcal Vaccine: Pediatrics (0 to 5 Years) and At-Risk Patients (6 to 49) Years Aged Out No longer eligible based on patient's age to complete this topic RSV under 20 months Aged Out No longe r eligible based on patient's age to complete this topic Rotavirus Vaccines Aged Out No longer eligible based on patient's age to complete this topic Procedures Procedure Name Priority Date/Time Associated Diagnosis Comments IRON AND TOTAL IRON BINDING CAPACITY Routine 04/30/2025 2:26 PM EDT Palpitations CBC WITH AUTO DIFFERENTIAL Routine 04/30/2025 2:26 PM EDT Palpitations POCT , URINE Routine 04/30/2025 1:40 PM EDT Dizziness HIV 1/2 ANTIGEN/ANTIBODY, FOURTH GENERATION W/RFL Routine 06/17/2022 3:31 PM EST HPV MRNA E6/E7 Routine 10/22/2020 11:42 AM EDT THINPREP PAP Routine 10/22/2020 11:42 AM EDT from Last 3 Months or Most Recently Relevant to Health Maintenance Results * (ABNORMAL) CBC auto differential (04/30/2025 2:26 PM EDT) White Blood Count 11.3(H) 4.8 - 10.8 X10*3/uL [facility] Red Blood Count 4.56 4.20 - 5.50 X10*6/uL [facility] Hemoglobin 8.8(L) 12.0 - 16.0 g/dl [facility] Hematocrit 29.0(L) 37.0 - 47.0 % [facility] Mean Corpuscular Volume 63.6(L) 80.0 - 98.0 fL [facility] Mean Corpuscular Hemoglobin 19.3(L) 27.0 - 33.0 pg [facility] Mean Corpuscular HGB Conc 30.3(L) 31.0 - 35.0 g/dl [facility] Red Cell Distribution Width 21.7(H) 11.0 - 16.0 % [facility] Platelet Count 347 160 - 400 X10*3/uL [facility] Mean Platelet Volume 9.1(L) 9.4 - 12.3 fL [facility] Neutrophils Percent Auto 76.7(H) 45 - 73 % [facility] Imm Gran Pct Auto 0.4 0.0 - 0.4 % [facility] Lymphocytes Percent Auto 15.2(L) 20 - 40 % [facility] Monocytes Percent Auto 6.8 2 - 11 % [facility] Eosinophils Percent Auto 0.4 0 - 4 % [facility] Basophils Percent Auto 0.5 0 - 2 % [facility] NRBC Pct Auto 0.0 0.0 - 0.2 /100WBC [facility] Neutrophils Absolute Auto 8.7(H) 2.0 - 8.3 x10*3/uL [facility] Imm Gran Abs Auto 0.05(H) 0.00 - 0.03 X10*3/uL [facility] Lymphocytes Absolute Auto 1.7 1.2 - 4.9 X10*3/uL [facility] Monocytes Absolute Auto 0.8 0.1 - 1.2 X10*3/uL [facility] Eosinophils Absolute Auto 0.0 0.0 - 0.4 X10*3/uL [facility] Basophils Absolute Auto 0.1 0.0 - 0.2 X10*3/uL [facility] NRBC Abs Auto 0.000 0.0 - 0.012 X10*3/uL [facility] Blood Venous blood specimen / Unknown 04/30/2025 2:26 PM EDT 04/30/2025 4:00 PM EDT us Gisell Matthew NP LAB BLOOD ORDERABLES Final Resu lt [facility] [address] [place] [phone] * POCT Urine (04/30/2025 1:40 PM EDT) Preg Test, Ur Negative Negative, Indeterminate, None Detected, Invalid, Specimen unsatisfactory for evaluation, Weakly Positive, 2+ QC Media Lot # [id number] Lot# Expiration Date [id number] Urine 04/30/2025 1:40 PM EDT Gisell Matthew NP POINT OF CARE TEST ENTER/EDIT O RDERABLES Final Result * HIV 1/2 ANTIGEN/ANTIBODY,FOURTH GENERATION W/RFL (06/17/2022 3:31 PM EST) HIV-1/2 ANTIGEN AND ANTIBODIES, 4TH GENERATION W/ REFLEX NON-REACT RAZA NON-REACT RAZA [facility] Comment: HIV-1 antigen and HIV-1/HIV-2 antibodies were not detected. There is no laboratory evidence of HIV infection. PLEASE NOTE: This information has been disclosed to you from records whose confidentiality may be protected by state law. If your state requires such protection, then the state law prohibits you from making any further disclosure of the information without the specific written consent of the person to whom it pertains, or as otherwise permitted by law. A general authorization for the release of medical or other information is NOT sufficient for this purpose. For additional information please refer to http://education.[employer]/faq/YRB925 (This link is being provided for informational/ educational purposes only.) The performance of this assay has not been clinically validated in patients less than 2 years old. 06/17/2022 3:31 PM EST Olga Lidia Marrero [facility] LAB BLOOD ORDERABLES Shannon cazares Result [facility] * THINPREP PAP (10/22/2020 11:42 AM EDT) Clinical Information: None given [facility] COMMENT SEE COMMENT [facility] Comment: EXPLANATORY NOTE: The Pap is a screening test for cervical cancer. It is not a diagnostic test and is subject to false negative and false positive results. It is most reliable when a satisfactory sample, regularly obtained, is submitted with relevant clinical findings and history, and when the Pap result is evaluated along with historic and current clinical information. Hot Mix Operator : SEE COMMENT [facility] Comment: DCR, CT(ASCP) CT screening location: [place] [address] Infection Shift in vaginal chapincito suggestive of bacterial vaginosis. [facility] Interpretation/R esult: Negative for intraepithelial lesion or malignancy. [facility] LMP: NONE [facility]IVEN [facility] Prev. BX: NONE [facility]IV[facility] Prev. PAP: NONE [facility]IVEN [facility] SOURCE: None given [facility] Statement Of Adequacy: SEE COMMENT [facility] Comment: Satisfactory for evaluation. Endocervical/transformation zone component present. Age and/or menstrual status not provided 10/22/2020 11:4 2 AM EDT Olga Lidia ORDONEZ LAB PATHOLOGY ORDERABLES Final Result Performing Organization Address [facility] Co de Phone Number [facility] [address] * HPV mRNA E6/E7 (10/22/2020 11:42 AM EDT) HPV nRNA E6/E7 Not Detected Not Detected [facility] Comment: Methodology: Refrigeration Specialist-Mediated Amplification This assay detects E6/E7 viral messenger RNA (mRNA) from 14 high-risk HPV types (16,18,31,33,35,39,45,51,52,56,58,59,66,68). The analytical performance characteristics of this assay have been determined by [employer]. The modifications have not been cleared or approved by the FDA. This assay has been validated pursuant to the CLIA regulations and is used for clinical purposes. For additional information, please refer to http://education.[employer]/faq/BHI720s8 (This link if provided for information/ educational purposes only.) 10/22/2020 11:4 2 AM EDT Olga Lidia ORDONEZ LAB BLOOD ORDERABLES Shannon l Result Performing Organization Address [facility] Co de Phone Number [facility] [address] from Last 3 Months or Most Recently Relevant to Health Maintenance Insurance C3 Care Teams Medical Record Assistant Relationship Specialty Start Date End Date Name, MD Royal [address] [place] [id number] PCP - General Family Medicine 11/21/15
--- OUTSIDE RECORDS SUMMARY | 2025-04-30 16:50 | XMS_ITS | Encounter Summary ---
Author Organization [employer] Address [address] [facility] 7t [place] [address] Care Team Providers Care Party Host/Hostess Name Role Phone Name, Royal LEON Primary Care Provider [phone] Encounter Details Date Type Department Care Team ([facility] st Contact Info) Description 06/14/2024 Telephone [facility] [address] [place], [place] [phone] Name, MD Royal [address] [place] [address] Social History Tobacco Use Types Packs/Day Years [...] AM EDT documented as of this encounter Miscellaneous Notes * Telephone Encounter - Sakina Fuentes - 06/14/2024 8:16 AM EST Tc from pt would like to know when is she due for her next pap appt with naheed. documented in this encounter Plan of Treatment Not on file documented as of this encounter Visit Diagnoses Not on filedocumented in this encounter Additional Health Concerns Assessment Noted Time PHQ-9 Depression Total Score: 6 10/11/19 24 10:38 AM EDT documented as of this encounter Care Teams Party Host/Hostess Relationship Specialty Start Date End Date Name, MD Royal [address] [place] [address] PCP - General Family Medicine 11/21/15 documented as of this encounter
--- OUTSIDE RECORDS SUMMARY | 2025-04-30 16:50 | XMS_ITS | Encounter Summary ---
Author Organization [employer] Address [address] [facility] 7t [place] [address] Care Team Providers Care Kid Club Attendant Name Role Phone Name, Royal LEON Primary Care Provider [phone] Reason for Visit * Reason Onset Date Comments Nurse Triage 09/20/2023 Encounter Details Date Type Department Care Team ([facility] st Contact Info) Description 09/20/2023 Telephone [facility] [address] [place] [address] Name, MD Royal [address] [place] [address] Nurse Triage Social History Tobacco Use Types Packs/Day Years Used Date Smoking Tobacco: Never Smokeless Tobacco: Never Alcohol Use Standard Drinks/Week Comments Never 0 (1 standard drink = 0.6 oz pur e alcohol) Depression Answer Date Recorded Patient Health Questionnaire-9 Score 24 09/20/2023 Patient Health Questionnaire-9 Score 24 09/20/2023 Last PHQ-9: Questionnaire Data Not on file 0 09/20/2023 Housing Stability Answer Date Recorded What is your housing situation today? I have bertha aden 05/20/[address] you li ve. Do you have problems with any of the following? None of the above 05/20/2023 Food Insecurity Answer Date Recorded Within the past 12 months, y ou worried that your food would run out before you got money to buy more: Never True 05/20/2023 Within the past 12 months,th e food you bought just didn't last and you didn't have enough money to get more: Never True Transportation Answer Date Recorded In the past 12 months, has l ack of transportation kept you from medical appts, meetings, work or from getting things needed for daily living? Yes, it has kept me from medical appointments or getting medications. 05/02/2023 Utilities Answer Date Recorded In the past 12 months, has t he electric, gas, oil or water company threatened to shut off services in your home? No 05/20/2023 Depression Answer Date Recorded Patient Health Questionnaire-2 Score 6 09/20/2023 Comments Unknown Sex and Gender Information Value Date Recorded Sex Assigned at Female 05/25/2022 10:29 AM EDT Legal Sex Female 10:29 AM EDT Gender Identity Female 05/25/2022 10:29 AM EDT Sexual Orientation Straight 05/25/2022 10 :29 AM EDT documented as of this encounter Functional Status * Over the past 2 weeks, how often have you been bothered by any of the following problems? Question Answer Date of Assessment Author Patient Health Questionnaire-2 Score 6 08/27 2:59 PM EST Rhea Gonzalez * Over the last 2 weeks, how often have you been bothered by any of the following problems? Question Answer Date of Assessment Author Feeling nervous, anxious, or on edge 3 08/27 2:59 PM EST Rhea Gonzalez Not being able to stop or co ntrol worrying 3 09/20/2023 2:59 PM EST Rhea Gonzalez Worrying too much about different things 3 09/20/2023 2:59 PM EST Rhea Gonzalez Trouble relaxing 3 09/20/2023 2:59 PM EST Rhea Hanley Being so restless that it is hard to sit still 3 09/20/2023 2:59 PM EST Carlos Rhea Becoming easily annoyed or irritable 3 08/27 2:59 PM EST Rhea Gonzalez Feeling afraid as if somethi ng awful might happen 3 09/20/2023 2:59 PM EST Chico Gonzalezsa JIM-7 Total Score 21 09/20/2023 2:59 PM EST Chico Gonzalezsa * Over the past 2 weeks, how often have you been bothered by any of the following problems? Question Answer Date of Assessment Author Little interest or pleasure in doing things Nearly every day 09/20/2023 2:59 PM EST Gonzalez, Rhea Feeling down, depressed, or hopeless Nearly every day 09/20/2023 2:59 PM EST Gonzalez, Rhea Trouble falling or staying asleep, or sleeping too much Nearly every day 09/20/2023 2:59 PM EST Gonzlaez, Rhea Feeling tired or having sophie le energy Nearly every day 09/20/2023 2:59 PM EST Gonzalez, Rhea Poor appetite or overeating Nearly every day 2:59 PM EST Gonzalez, Rhea Feeling bad about yourself - or that you are a failure or have let yourself or your family down Nearly every day 09/20/2023 2:59 PM EST Gonzalez, Rhea Trouble concentrating on things, such as reading the newspaper or watching television Nearly every day 09/20/2023 2:59 PM EST Gonzalez, Rhea Moving or speaking so slowly that other people could have noticed? Or the opposite - being so fidgety or restless that you have been moving around a lot more than usual. Nearly every day 09/20/2023 2:59 PM EST Gonzalez, Rhea Thoughts that you would be better off or hurting yourself in some way Not at all 09/20/2023 2:59 PM EST Gonzalez Rhea Patient Health Questionnaire -9 Score 24 09/20/2023 2:59 PM EST Gonzalez Rhea documented as of this encounter Miscellaneous Notes * Telephone Encounter - Nola Chin RN - 09/20/2023 1:02 PM EST Triage call Pt reports worsening depression since left job 09/10/23. Pt doesn't want to socialize, doesn't want to leave the house or even talk to anyone. Pt is not suicidal and doesn't want to hurt anyone. Pt is struggling financially now due to not able to work. Pt has finally called best friend and talked with her. Pt has some weight loss weighs 171lbs due to not wanting to eat. Pt reports eating an egg and tomato today because Pt realizes need to eat. Pt weight in OV 08/25/23 was 179lbs. Pt is offered to come to [facility] today but, declines to leave the house. Pt is given hours for [facility] M-T-W 830am - 800pm and -Fr 830am-400pm in case wants to be seen by provider at any time. Pt agrees to keepthis information. Pt is given crisis number [phone]. Pt is advised person will be calling to speak with Pt and Pt agrees with this plan. Call to Lindsey Pang, Luis information given and reportssomeone from will call Pt soon. Protocol Used: Depression (Adult) Protocol-Based Disposition: See in Office or Video Visit within 3 Days Video visit not offered Positive Triage Questions: * Significant weight loss (> 10 pounds or 5 kg) and not dieting * Patient wants to be seen * All higher-acuity triage questions were negative Care Advice Discussed: * Note to Triager - Depression * Depression - Symptoms * Depression - Causes * Depression - Tips for Healthy Living * Depression - Stay Active * Reasons To Call Back - Sadness or depression symptoms persist over 2 weeks - You want to talk with a counselor - You feel like harming yourself - You become worse * Telephone Encounter - Larry Ngo - 09/20/2023 12:27 PM EST Symptom: Depression Outcome: Transfer to a nurse or provider NOW! Reason: Acting confused documented in this encounter Plan of Treatment Not on file documented as of this encounter Visit Diagnoses Not on filedocumented in this encounter Additional Health Concerns Assessment Noted Time PHQ-9 Depression Total Score: 24 024 2:59 PM EST documented as of this encounter Care Teams Kid Club Attendant Relationship Specialty Start Date End Date Name, MD Royal [address] [place] [address] PCP - General Family Medicine 11/21/15 documented as of this encounter
--- OUTSIDE RECORDS SUMMARY | 2025-04-30 16:50 | XMS_ITS | Encounter Summary ---
Author Organization [employer] Address [address] [facility] 7t [place] [address] Care Team Providers Care Stock Shipper Name Role Phone Name, Royal LEON Primary Care Provider [phone] Reason for Visit * Reason Onset Date Comments Letter for School/Work 02/28/2024 Encounter Details Date Type Department Care Team ([facility] Contact Info) Description 02/28/2024 Telephone [facility] [address] [place], [place] [phone] Name, MD Royal [address] [place] [address] Letter for School/Work Social History Tobacco Use Types Packs/Day Years [...] encounter Miscellaneous Notes * Telephone Encounter - Dontrell Mata - 02/28/2024 10:28 AM EDT Tc from patient requesting a letter to be excused from jury duty states it is sometime in April documented in this encounter Plan of Treatment Not on file documented as of this encounter Visit Diagnoses Not on filedocumented in this encounter Additional Health Concerns Assessment Noted Time PHQ-9 Depression Total Score: 6 10/11/19 24 10:38 AM EDT documented as of this encounter Care Teams Stock Shipper Relationship Specialty Start Date End Date Name, MD Royal [address] [place] [address] PCP - General Family Medicine 11/21/15 documented as of this encounter
--- OUTSIDE RECORDS SUMMARY | 2025-04-30 16:50 | XMS_ITS | Encounter Summary ---
Author Organization [employer] Address [address] [facility] 7t [place] [address] Care Team Providers Care Chief Customer Officer Name Role Phone Name, Royal LEON Primary Care Provider [phone] Encounter Details Date Type Department Care Team (Late st Contact Info) Description 03/17/2024 Orders Only [facility] MEDICINE [address] [place] [address] Name, MD Royal [address] [place] [address] Social History Tobacco Use Types Packs/Day Years [...] AM EDT documented as of this encounter Plan of Treatment Not on file documented as of this encounter Visit Diagnoses Not on filedocumented in this encounter Additional Health Concerns Assessment Noted Time PHQ-9 Depression Total Score: 6 10/11/19 24 10:38 AM EDT documented as of this encounter Care Teams Chief Customer Officer Relationship Specialty Start Date End Date Name, MD Royal [address] [place] [id number] PCP - General Family Medicine 11/21/15 documented as of this encounter
--- OUTSIDE RECORDS SUMMARY | 2025-04-30 16:50 | XMS_ITS | Encounter Summary ---
Author Organization [employer] Address [address] [facility] 7t [place] [address] Care Team Providers Care Production Department Supervisor Name Role Phone Name, Royal LEON Primary Care Provider [phone] Reason for Visit * Reason Onset Date Comments Call Back Request 03/17/2024 Encounter Details Date Type Department Care Team ([facility] st Contact Info) Description 03/17/2024 Telephone [facility] MEDICINE [address] [place] [address] Name, MD Royal [address] [place] [address] Call Back Request Social History Tobacco Use Types Packs/Day Years [...] encounter Miscellaneous Notes * Telephone Encounter - Yves Hudson RN - 03/17/2024 10:28 AM EDT T/C to pt. For below message. Pt. Advised that TB test ordered and for clearance letter go to medical records/ form dept. Pt. Verbally agreed and understood. Mikayla, may you please tell me when I had my last TB test? In addition, I need documentation if I had one recently. If not, what would be the best way for me to do it? Also I need a health clearance form or letter stating I can work. * Telephone Encounter - Dontrell Mata - 03/17/2024 10:08 AM EDT Tc from [facility] was advised to return call documented in this encounter Plan of Treatment Not on file documented as of this encounter Visit Diagnoses Not on filedocumented in this encounter Additional Health Concerns Assessment Noted Time PHQ-9 Depression Total Score: 6 10/11/19 24 10:38 AM EDT documented as of this encounter Care Teams Production Department Supervisor Relationship Specialty Start Date End Date Name, MD Royal [address] [place] [id number] PCP - General Family Medicine 11/21/15 documented as of this encounter
--- OUTSIDE RECORDS SUMMARY | 2025-04-30 16:50 | XMS_ITS | Encounter Summary ---
Author Organization [employer] Address [address] [facility] 7t [place] [address] Care Team Providers Care Chocolate Molder Name Role Phone Name, Royal LEON Primary Care Provider [phone] Reason for Visit * Reason Onset Date Comments Appointment Request 11/28/2024 Encounter Details Date Type Department Care Team ([facility] st Contact Info) Description 11/28/2024 Telephone [facility] MEDICINE [address] [place] [address] Name, MD Royal [address] [place] [address] Appointment Request Social History Tobacco Use Types Packs/Day [...] encounter Miscellaneous Notes * Telephone Encounter - Gen Grady - 11/28/2024 3:42 PM EDT 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 Please contact pt [phone] documented in this encounter Plan of Treatment Not on file documented as of this encounter Visit Diagnoses Not on filedocumented in this encounter Additional Health Concerns Assessment Noted Time PHQ-9 Depression Total Score: 6 10/11/19 24 10:38 AM EDT documented as of this encounter Care Teams Chocolate Molder Relationship Specialty Start Date End Date Name, MD Royal [address] [place] [address] PCP - General Family Medicine 11/21/15 documented as of this encounter
--- OUTSIDE RECORDS SUMMARY | 2025-04-30 16:50 | XMS_ITS | Clinical Summary ---
Author Organization [facility] it Address [address] [place] [address] Care Team Providers Care Pantry Steward/Stewardess Name Role Phone Name, Royal LEON Primary Care Provider Surgical History Surgery Date Site/Laterality Comments OTHER SURGICAL HISTORY PROCEDURE: MA DILATION & CURETTAGE DX&/THER NONOBSTETRIC TUBAL LIGATION 02/2012 PROCEDURE: HISTORICAL TUBAL LIGATION Family History Medical History Relation Name Comments Cataracts Maternal Grandmother Relation Name Status Comments Brother 1 Alive Brother 2 Alive Brother 3 Alive Brother 4 Alive Daughter Alive Father Alive Maternal Grandmother Mother Alive Sister 1 Alive Sister 2 Alive Sister 3 Alive Sister 4 Alive Sister 5 Alive Sister 6 Alive Sister 7 Alive Son Alive Social History Tobacco Use Types Packs/Day Years Used Date Smoking Tobacco: Never Smokeless Tobacco: Never Alcohol Use Standard Drinks/Week Comments No 0 (1 standard drink = 0.6 oz pur e alcohol) Comments Unknown Sex and Gender Information Value Date Recorded Sex Assigned at Not on file Legal Sex Female 10:31 PM EST Gender Identity Not on file Sexual Orientation Not on file Obstetrics History Plan of Treatment Health Maintenance Due Date Last Done Comments Hepatitis B Vaccines (1 of 3 - 19+ 3-dose series) 2005 DTaP,Tdap,and Td Vaccines (2 - Td or Tdap) 04/08/2020 04/08/2010 Cervical Cancer Screening: P ap Smear 09/30/2020 09/30/2017, 09/30/2017 Depression Screening 07/26/2024 COVID-19 Vaccine (1 - 2023-2 5 season) 2025 Influenza Vaccine (#1) 2025 RSV Immunization Adult Patients (1 - 1-dose 75+ series) 2061 MMR Vaccines Aged Out 10/01/2010 No longer eligi ble based on patient's age to complete this topic HPV Vaccines Completed 01/31/2014, 08/28/2013, 03/21/2013 HIB Vaccines Aged Out No longer eligi ble based on patient's age to complete this topic Hepatitis A Vaccines Aged Out No long er eligible based on patient's age to complete this topic IPV Vaccines Aged Out No longer eligi ble based on patient's age to complete this topic Meningococcal ACWY Vaccine Aged Out N o longer eligible based on patient's age to complete this topic Meningococcal B Vaccine Aged Out No l onger eligible based on patient's age to complete this topic Pneumococcal Vaccine: Pediatrics (0 to 5 Years) and At-Risk Patients (6 to 49 Years) Aged Out No longer eligible b ased on patient's age to complete this topic RSV Immunization Patients Under 20 months Aged Out No longer eligible b ased on patient's age to complete this topic Varicella Vaccines Aged Out No longer eligible based on patient's age to complete this topic Procedures Procedure Name Priority Date/Time Associated Diagnosis Comments PAP SMEAR Routine 09/30/2017 from Last 3 Months or Most Recently Relevant to Health Maintenance Results * Pap smear (09/30/2017) 09/30/2017 Narrative HISTORICAL TESTING LAB RESULTING AGENCY - 10/05/2017 3:26 PM EDT [id number] THINPREP PAP, IMAGED: NEGATIVE FOR SQUAMOUS INTRAEPITHELIAL LESION AND MALIGNANCY . REACTIVE CELLULAR CHANGES. HYPERKERATOSIS IS PRESENT. RESULT OF APTIMA HIGH RISK HPV ASSAY: NEGATIVE (SEROTYPES 16,18,31,33,35,39,45,51,52,56,58,59,66,68) SYDNEY QUACH(ASCP) (CASE SCREENED 10 04 2017) ROSEMARIE FLOOD M.D., PATHOLOGIST (CASE ELECTRONICALLY SIGNED 10 04 2017) ADEQUACY: SATISFACTORY. ENDOCERVICAL/TRANSFORMATION ZONE COMPONENT PRESENT. SOURCE: THINPREP PAP HPV ANY DX: REFLEX 16 AND 18, CERVICAL, IMAGED: CLINICAL INFORMATION: HPV ANY DIAGNOSIS. HORMONES, POSITIVE, LMP 08/07/17 Manisha Petersen [facility] LAB CYTOLOGY ORDERABLES Final R esult HISTORICAL TESTING LAB RESULTING AGENCY from Last 3 Months or Most Recently Relevant to Health Maintenance Care Teams Pantry Steward/Stewardess Relationship Specialty Start Date End Date Name, MD Royal [address] [facility] [place] PCP - General Internal Medicine 12/04/15
--- OUTSIDE RECORDS SUMMARY | 2025-04-30 16:50 | XMS_ITS | Encounter Summary ---
Author Organization [employer] Address [address] [place] [address] 7 [place] [address] Care Team Providers Care Shutdown Planner Name Role Phone Name, Royal LEON Primary Care Provider [phone] Encounter Details Date Type Department Care Team (Late st Contact Info) Description 07/03/2022 Orders Only [facility] [address] [place], [place] [phone] Name, MD Royal [address] [place] [address] Social History Tobacco Use Types Packs/Day Years Used Date Smoking Tobacco: Never Assessed Comments Unknown Sex and Gender Information Value Date Recorded Sex Assigned at Female 05/25/2022 10:29 AM EDT Legal Sex Female 10:29 AM EDT Gender Identity Female 05/25/2022 10:29 AM EDT Sexual Orientation Straight 05/25/2022 10 :29 AM EDT documented as of this encounter Plan of Treatment Not on file documented as of this encounter Visit Diagnoses Not on filedocumented in this encounter Care Teams Shutdown Planner Relationship Specialty Start Date End Date Name, MD Royal [address] [place] [address] [phone] PCP - General Family Medicine 11/21/15 documented as of this encounter
--- OUTSIDE RECORDS SUMMARY | 2025-04-30 16:50 | XMS_ITS | Encounter Summary ---
Author Organization [employer] Address [address] [facility] 7t [place] [address] Care Team Providers Care Institute Director Name Role Phone Name, Royal LEON Primary Care Provider [phone] Encounter Details Date Type Department Care Team (Latest Contact Info) Description 04/30/2025 Travel Social History Tobacco Use Types Packs/Day Years [...] documented as of this encounter Care Teams Institute Director Relationship Specialty Start Date End Date Name, MD Royal [address] [place] [address] PCP - General Family Medicine 11/21/15 documented as of this encounter
== END 2025-04-30 14:21 | disposition home or self-care (01) ==
LOC: HO.HHCL 14:20
PROVIDERS: PCP Internal Medicine Geriatric Medicine; Visit Provider Nurse Practitioner
DX: R00.2 Palpitations (principal)
CPT/HCPCS: 36415; 83540; 84443; 85025

== ENCOUNTER → 2025-05-16 08:01 | Outpatient (REF) | payer MEDICAID, SELFPAY ==
--- OUTSIDE RECORDS SUMMARY | 2025-05-14 14:30 | XMS_ITS | Encounter Summary ---
Author Organization [employer] Address [address] [place] [address] Care Team Providers Care Ballaster Name Role Phone Royal Schumacher MD Primary Care Provider [phone] Reason for Referral * Consultation (Routine) - Authorized Specialty Diagnoses / Procedures Referred By Contac t Referred To Contact Obstetrics and Gynecology Diagnoses Iron deficiency anemia due to chronic blood loss Menorrhagia with irregular cycle NameRoyal MD [address] [place] [address] Phone: tel: fax: [facility] [address] [place] [address] Phone: tel: fax: Referral ID Status Reason Start Date Expiration Date Visits Requested Visits Authorized [id number] Authorized Specialty Services Required 05/14/2026 9 9 Reason for Visit * Reason Comments Follow-up Encounter Details Date Type Department Care Team (Late st Contact Info) Description 05/14/2025 2:30 PM EDT Office Visit [facility] [address] [place] [address] [phone] Royal Schumacher MD [address] [place], [place] [phone] Iron deficiency anemia due to chronic blood loss (Primary Dx); Menorrhagia with irregular cycle Social History Tobacco Use Types Packs/Day Years Used Date Smoking Tobacco: Never Smokeless Tobacco: Never Tobacco Cessation:Counseling Given: Not Answered Alcohol Use Standard Drinks/Week Comments Never 0 (1 standard drink = 0.6 oz pur e alcohol) Alcohol Answer Date Recorded How often do you have a drink containing alcohol ? 1 05/14/2025 How many drinks containing a lcohol do you have on a typical day when you are drinking? 0 05/14/2025 How often do you have six or more drinks on one occasion? 1 05/14/2025 Depression Answer Date Recorded Patient Health Questionnaire-9 Score 5 05/14/2025 Patient Health Questionnaire-9 Score 5 05/14/2025 Last PHQ-9: Questionnaire Data Not on file 1 Housing Stability Answer Date Recorded What is your housing situation today? I have bertha aden 05/14/[address] you li ve. Do you have problems with any of the following? Pests such as bugs, ants, or mice 05/14/2025 Food Insecurity Answer Date Recorded Within the past 12 months, y ou worried that your food would run out before you got money to buy more: Never True 05/14/2025 Within the past 12 months,th e food you bought just didn't last and you didn't have enough money to get more: Never True Transportation Answer Date Recorded In the past 12 months, has l ack of transportation kept you from medical appts, meetings, work or from getting things needed for daily living? No 05/14/2025 Utilities Answer Date Recorded In the past 12 months, has t he electric, gas, oil or water company threatened to shut off services in your home? No 05/14/2025 Depression Answer Date Recorded Patient Health Questionnaire-2 Score 1 05/14/2025 Internet Access Answer Date Recorded Internet Access Q1 Yes 05/14/2025 Internet Access Q2 Not on file 05/14/2025 Comments No Sex and Gender Information Value Date Recorded Sex Assigned at Female 05/25/2022 10:29 AM EDT Legal Sex Female 10:29 AM EDT Gender Identity Female 05/25/2022 10:29 AM EDT Sexual Orientation Straight 05/25/2022 10 :29 AM EDT documented as of this encounter Last Filed Vital Signs Vital Sign Reading Time Taken Comments Blood Pressure 122/72 05/14/2025 2:34 PM EDT Pulse 84 05/14/2025 2:34 PM EDT Temperature 36.2 C (97.1 F) 05/14/2025 2:34 PM EDT Respiratory Rate 18 05/14/2025 2:34 PM EDT Oxygen Saturation 98% 05/14/2025 2:34 PM EDT Inhaled Oxygen Concentration - - Weight 80 kg (176 lb 6.4 oz) 05/14/2025 2:34 PM EDT Height 154.9 cm (5' 1 ) 05/14/2025 2:34 PM EDT Body Mass Index 33.33 05/14/2025 2:34 PM EDT documented in this encounter Functional Status * Over the past 2 weeks, how often have you been bothered by any of the following problems? Question Answer Date of Assessment Author Patient Health Questionnaire -2 Score 1 05/14/2025 2:47 PM EDT Sid Yuan MA * Little interest or pleasure in doing things Answer Date of Assessment Author Not at all 05/14/2025 2:47 PM EDT Rashaun Yuan MA * Feeling down, depressed, or hopeless Answer Date of Assessment Author Several days 05/14/2025 2:47 PM EDT Rashaun Yuan MA * Trouble falling or staying asleep, or sleeping too much Answer Date of Assessment Author Several days 05/14/2025 2:47 PM EDT Rashaun Yuan MA * Feeling tired or having little energy Answer Date of Assessment Author Several days 05/14/2025 2:47 PM EDT Rashaun Yuan MA * Poor appetite or overeating Answer Date of Assessment Author Several days 05/14/2025 2:47 PM EDT Rashaun Yuan MA * Feeling bad about yourself - or that you are a failure or have let yourself or your family down Answer Date of Assessment Author Not at all 05/14/2025 2:47 PM BREANNAT Rashaun Yuan MA * Trouble concentrating on things, such as reading the newspaper or watching television Answer Date of Assessment Author Several days 05/14/2025 2:47 PM EDT Rashaun Yuan MA * Moving or speaking so slowly that other people could have noticed? Or the opposite - being so fidgety or restless that you have been moving around a lot more than usual. Answer Date of Assessment Author Not at all 05/14/2025 2:47 PM EDT Rashaun Yuan MA * Thoughts that you would be better off or hurting yourself in some way Answer Date of Assessment Author Not at all 05/14/2025 2:47 PM EDT Rashaun Yuan MA * Patient Health Questionnaire-9 Score Answer Date of Assessment Author 5 05/14/2025 2:47 PM EDT Rashaun Yuan MA * How difficult have these problems made it for you to do your work, take care of things at home, or get along with other people? Answer Date of Assessment Author Somewhat difficult 05/14/2025 2:47 PM EDT Rashaun Nance MA * Over the last 2 weeks, how often have you been bothered by any of the following problems? Question Answer Date of Assessment Author Feeling nervous, anxious, or on edge 1 05/14/2025 2:46 PM EDT Sid Yuan MA Not being able to stop or control worrying 0 05/14/2025 2:46 PM BREANNAT Sid Yuan MA Worrying too much about different things 1 05/14/2025 2:46 PM BREANNAT Sid Yuan MA Trouble relaxing 1 05/14/2025 2:46 PM EDT Rashaun Atwood MA Being so restless that it is hard to sit still 1 05/14/2025 2:46 PM BREANNAT Sid Yuan MA Becoming easily annoyed or irritable 0 05/14/2025 2:46 PM BREANNAT Sid Yuan MA Feeling afraid as if somethi ng awful might happen 0 05/14/2025 2:46 PM BREANNAT Sid Yuan MA JIM-7 Total Score 4 05/14/2025 2:46 PM EDT Rashaun Yuan MA documented as of this encounter Progress Notes * Royal Schumacher MD - 05/14/2025 2:30 PM EDT Images from the original note were not included. Subjective Patient ID: Tonya Orr is a 39 y.o. female who presents for Follow-up. Patient comes for a follow-up visit. She complains of tiredness. She has chronic iron deficiency anemia secondary to heavy menstrual blood loss. She continues to have irregular menses that sometimes last up to 3 weeks. She does not use iron supplementation regularly. She has tried oral contraceptives and contraceptive injections to control her menstrual periods without much improvement but is not clear if she uses therapies consistently. I have suggested referral to gynecology because of her irregular and heavy menses, I have recommended to use her iron supplements 3 times a week, I also recommended evaluation with fecal occult blood testing but she denies any history of melena, no vomiting, no bright red blood per rectum. Review of Systems Constitutional: Negative for chills and fever. HENT: Negative for sore throat. Respiratory: Negative for cough, shortness of breath and wheezing. Cardiovascular: Negative for chest pain, palpitations and leg swelling. Gastrointestinal: Negative for abdominal pain, blood in stool and diarrhea. Genitourinary: Positive for menstrual problem. Objective Vitals: 05/14/25 1434 BP: 122/72 BP Location: Left arm Patient Position: Sitting BP Cuff Size: Adult Pulse: 84 Resp: 18 Temp: 97.1 ??F (36.2 ??C) TempSrc: Temporal SpO2: 98% Weight: 176 lb 6.4 oz (80 kg) Height: 5' 1 (1.549 m) Physical Exam Constitutional: Appearance: Normal appearance. Cardiovascular: Rate and Rhythm: Normal rate and regular rhythm. Heart sounds: No murmur heard. No gallop. Pulmonary: Effort: Pulmonary effort is normal. No respiratory distress. Breath sounds: Normal breath sounds. No wheezing. Musculoskeletal: Right lower leg: No edema. Left lower leg: No edema. Neurological: Mental Status: She is alert. ntains abnormal data CBC auto differential Order: [id number] Status: Final result Dx: Palpitations Test Result Released: Yes (seen) Messages: Seen 0 Result Notes 1 Patient Communication View Follow-Up Encounter Component Ref Range & Units (hover) 2 wk ago (04/30/25) 1 yr ago (02/24/24) 1 yr ago (12/13/23) 1 yr ago (10/07/23) 1 yr ago (06/08/23) 2 yr ago (04/21/23) 2 yr ago (08/25/22) White Blood Count 11.3 High 9.2 7.3 Red Blood Count 4.56 4.60 4.79 Hemoglobin 8.8 Low 9.5 Abnormal R 9.5 Low 9.6 Abnormal R 9.4 Abnormal R 9.5 Low 9.8 Low R Hematocrit 29.0 Low 31.3 Low 31.5 Low 32.7 Low R Mean Corpuscular Volume 63.6 Low 68.0 Low 65.8 Low Mean Corpuscular Hemoglobin 19.3 Low 20.7 Low 19.8 Low Mean Corpuscular HGB Conc 30.3 Low 30.4 Low 30.2 Low Red Cell Distribution Width 21.7 High 20.4 High 19.0 High Platelet Count 347 385 383 365 Iron And Total Iron Binding Capacity Order: [id number] Status: Final result Dx: Palpitations Test Result Released: Yes (seen) Messages: Seen 0 Result Notes 1 Patient Communication View Follow-Up Encounter Component Ref Range & Units (hover) 2 wk ago 2 yr ago Iron 27 Low 22 Low Total Iron Binding Capacity 380 358 Percent Iron Saturation 7 Low 6 Low Unsaturated Iron Binding 353 336 Resulting Agency [facility] Assessment/Plan Diagnoses and all orders for this visit: Iron deficiency anemia due to chronic blood loss Comments: Most likely secondary to heavy menstrual periods I will refer to gynecology I recommended oral iron supplementation every other day Fecal occult blood testing to rule out GI source Recheck CBC and ferritin next month Orders: - Ferrous Fumarate (Ferrocite) 324 (106 Fe) MG tablet; Take 1 tablet by mouth every other day. - Referral to Obstetrics / Gynecology; Future - CBC auto differential; Future - Ferritin; Future - Fecal Globin By Immunochemistry; Future Menorrhagia with irregular cycle - Ferrous Fumarate (Ferrocite) 324 (106 Fe) MG tablet; Take 1 tablet by mouth every other day. - Referral to Obstetrics / Gynecology; Future Future Appointments Date Time Provider Department Center 08/14/2025 1:00 PM Royal Schumacher MD [facility] documented in this encounter Plan of Treatment Upcoming Encounters Date Type Department Care Team (Late st Contact Info) Description 08/14/2025 1:00 PM EST Office Visit [facility] [address] [place] [address] Name, [place] [address] Scheduled Orders Name Type Priority Associated Diagnoses Orde r Schedule CBC auto differential Lab Routine Iron deficiency anemia due to chronic blood loss Expected: 06/14/2025 (Approximate), Expires: 05/14/2026 Ferritin Lab Routine Iron deficiency anemia due to chronic blood loss Expected: 06/14/2025, Expires: 05/14/2026 Fecal Globin By Immunochemistry Lab Routine Iron deficiency anemia due to chronic blood loss Expected: 05/14/2025 (Approximate), Expires: 05/14/2026 Scheduled Referrals Name Type Priority Associated Diagnoses Order Schedule Referral to Obstetrics / Gynecology Outpatient Referral Routine Iron deficiency anemia due to chronic blood loss Menorrhagia with irregular cycle Expected: 05/14/2025 (Approximate), Expires: 05/14/2026 documented as of this encounter Visit Diagnoses Diagnosis Iron deficiency anemia due to chronic blood loss- Primary Iron deficiency anemia secondary to blood loss (chronic) Menorrhagia with irregular cycle documented in this encounter Additional Health Concerns Assessment Noted Time PHQ-9 Depression Total Score: 5 05/14/20 25 2:47 PM EDT documented as of this encounter Care Teams Ballaster Relationship Specialty Start Date End Date Name, [place] [address] PCP - General Family Medicine 11/21/15 documented as of this encounter
--- NOTE | 2025-05-16 | HM_ITS ---
* Total monitoring time 2 days. * Underlying rhythm is sinus with an average rate of 87/Min. * Rare supraventricular ectopy. * No significant arrhythmias. * No significant pauses or high-grade AV blocks. * No patient markers or diary events. MTDD
--- OUTSIDE RECORDS SUMMARY | 2025-05-16 08:04 | XMS_ITS | Encounter Summary ---
Author Organization [employer] Address [address] [facility] 7t [place] [address] Care Team Providers Care Farm Management Agent Name Role Phone Name, Royal LEON Primary Care Provider Reason for Visit * Reason Onset Date Comments Nurse Triage 09/20/2023 Encounter Details Date Type Department Care Team ([facility] st Contact Info) Description 09/20/2023 Telephone [facility] [address] [place] [address] Name, MD Royal [address] [place] [address] Nurse Triage Social History Tobacco Use Types [...] 09/20/2023 2:59 PM EST Gonzalez, Rhea Feeling tired or having sophie le [...] Miscellaneous Notes * Telephone Encounter - Nola hCin RN - 09/20/2023 1:02 PM EST Triage [...] 179lbs. Pt is offered to come to [facility] today but, declines to leave the house. Pt is given hours for [facility] M-T-W 830am - 800pm and -Fr 830am-400pm in case wants to be seen by provider at any time. Pt agrees to keepthis information. Pt is given crisis number [phone]. Pt is advised person will be calling to speak with Pt and Pt agrees with this plan. Call to Lindsey Pang, Pt information given and reportssomeone from will call [...] Description 08/14/2025 1:00 PM EST Office Visit [facility] [address] [place] [address] Name, MD Royal [address] [place] [address] documented as of this encounter Visit Diagnoses Not on filedocumented in this encounter Additional Health Concerns Assessment Noted Time PHQ-9 Depression Total Score: 24 024 2:59 PM EST documented as of this encounter Care Teams Farm Management Agent Relationship Specialty Start Date End Date Name, MD Royal [address] [place] [address] PCP - General Family Medicine 11/21/15 documented as of this encounter
--- OUTSIDE RECORDS SUMMARY | 2025-05-16 08:04 | XMS_ITS | Encounter Summary ---
Author Organization [employer] Address 75 [facility] 7t [place] [address] Care Team Providers Care Clerical Investigator Name Role Phone Name, Royal LEON Primary Care Provider [phone] Reason for Visit * Reason Onset Date Comments Appointment Request 11/28/2024 Encounter Details Date Type Department Care Team ([facility] st Contact Info) Description 11/28/2024 Telephone [facility] MEDICINE [address] [place] [address] Name, MD Royal [address] [place] [address] Appointment Request Social History Tobacco Use Types [...] and they're requesting it. Please contact pt [phone] documented in this encounter Plan of Treatment Upcoming Encounters Date Type Department Care Team (Late st Contact Info) Description 08/14/2025 1:00 PM EST Office Visit [facility] MEDICINE [address] [place] [address] Name, MD Royal [address] [place] [address] documented as of this encounter Visit Diagnoses Not on filedocumented in this encounter Additional Health Concerns Assessment Noted Time PHQ-9 Depression Total Score: 6 10/11/19 24 10:38 AM EDT documented as of this encounter Care Teams Clerical Investigator Relationship Specialty Start Date End Date Name, MD Royal [address] [place] [address] PCP - General Family Medicine 11/21/15 documented as of this encounter
--- OUTSIDE RECORDS SUMMARY | 2025-05-16 08:04 | XMS_ITS | Encounter Summary ---
Author Organization [employer] Address 75 [facility] 7t [place] [address] Care Team Providers Care Manpower Development Advisor Name Role Phone Name, Royal LEON Primary Care Provider [phone] Encounter Details Date Type Department Care Team (Latest Contact Info) Description 05/14/2025 Travel Social History Tobacco Use Types Packs/Day [...] Assessment Author Several days 05/14/2025 2:47 PM BREANNAT Rashaun Yuan [place] * Poor appetite or [...] Assessment Author Several days 05/14/2025 2:47 PM Rashaun Hickman MA * Moving or speaking so slowly that other people could have noticed? Or the opposite - being so fidgety or restless that you have been moving around a lot more than usual. Answer Date of Assessment Author Not at all 05/14/2025 2:47 PM Rashaun Hickman MA * Thoughts that you would be better off or hurting yourself in some way Answer Date of Assessment Author Not at all 05/14/2025 2:47 PM Rashaun Hickman MA * Patient Health Questionnaire-9 Score Answer Date of Assessment Author 5 05/14/2025 2:47 PM Rashaun Hickman MA * How difficult have these problems [...] or on edge 1 05/14/2025 2:46 PM Sid Hickman MA Not being able to stop or control worrying 0 05/14/2025 2:46 PM Sid Hickman MA Worrying too much about different things 1 05/14/2025 2:46 PM Sid Hickman MA Trouble relaxing 1 05/14/2025 2:46 PM BREANNAT Rashaun At[place] Being so restless that it is hard to sit still 1 05/14/2025 2:46 PM Sid Hickman MA Becoming easily annoyed or irritable 0 05/14/2025 2:46 PM Sid Hickman MA Feeling afraid as if somethi ng awful might happen 0 05/14/2025 2:46 PM EDT Sid Yuan MA JIM-7 Total Score 4 05/14/2025 2:46 PM EDT Rashaun Yuan [place] documented as of this encounter Plan of Treatment Upcoming Encounters Date Type Department Care Team (Late st Contact Info) Description 08/14/2025 1:00 PM EST Office Visit [facility] MEDICINE [address] [place] [address] Name, MD Royal [address] [place] [address] documented as of this encounter Visit Diagnoses Not on filedocumented in this encounter Additional Health Concerns Assessment Noted Time PHQ-9 Depression Total Score: 5 05/14/20 25 2:47 PM EDT documented as of this encounter Care Teams Manpower Development Advisor Relationship Specialty Start Date End Date Name, MD Royal [address] [place] [address] PCP - General Family Medicine 11/21/15 documented as of this encounter
--- OUTSIDE RECORDS SUMMARY | 2025-05-16 08:04 | XMS_ITS | Encounter Summary ---
Author Organization [employer] Address [address] [facility] 7t [place] [address] Care Team Providers Care Cooker Syrup Name Role Phone Name, Royal LEON Primary Care Provider [phone] Reason for Referral * Consultation (Routine) - Authorized Specialty Diagnoses / Procedures Referred By Contac t Referred To Contact Hematology and Oncology Diagnoses Iron deficiency anemia due to chronic blood loss Gisell Matthew NP [address] [place] [address] Phone: tel: fax: [facility] [address] [facility] 2nd Floor (in [facility] [place], [place] Phone: tel: fax: Referral ID Status Reason Start Date Expiration Date Visits Requested Visits Authorized [id number] Authorized Specialty Services Required 05/08/2026 12 12 Encounter Details Date Type Department Care Team (Late st Contact Info) Description 04/30/2025 Results Follow-Up [facility] [address] [place] [address] Gisell Matthew NP [address] [place], [place] [phone] POCT Urine , CBC auto differential, Iron And Total Iron Binding Capacity, TSH W/Reflex to FT4 Social History Tobacco Use Types Packs/Day Years [...] Description 08/14/2025 1:00 PM EST Office Visit [facility] [address] [place] [address] Name, MD Royal [address] [place] [address] Scheduled Referrals Name Type Priority Associated Diagnoses Order Schedule Referral to Hematology / Oncology Outpatient Referral Routine Iron deficiency anemia due to chronic blood loss Expected: 04/30/2025 (Approximate), Expires: 04/30/2026 documented as of this encounter Visit Diagnoses Diagnosis Iron deficiency anemia due to chronic blood loss- Primary Iron deficiency anemia secondary to blood loss (chronic) documented in this encounter Additional Health Concerns Assessment Noted Time PHQ-9 Depression Total Score: 6 10/11/19 24 10:38 AM EDT documented as of this encounter Care Teams Cooker Syrup Relationship Specialty Start Date End Date Name, MD Royal [address] [place] [address] PCP - General Family Medicine 11/21/15 documented as of this encounter
--- OUTSIDE RECORDS SUMMARY | 2025-05-16 08:04 | XMS_ITS | Encounter Summary ---
Author Organization [email or web address] Address [address] [facility] 7t [place] [address] Care Team Providers Care Small Kick Press Operator Name Role Phone Name, Royal LEON Primary Care Provider [phone] Encounter Details Date Type Department Care Team ([facility] st Contact Info) Description 06/14/2024 Telephone [facility] [address] [place], [place] [phone] Name, MD Royal [address] [place] [address] Social History Tobacco Use Types Packs/Day Years [...] Description 08/14/2025 1:00 PM EST Office Visit [facility] [address] [place] [address] Name, MD Royal [address] [place] [address] documented as of this encounter Visit Diagnoses Not on filedocumented in this encounter Additional Health Concerns Assessment Noted Time PHQ-9 Depression Total Score: 6 10/11/19 24 10:38 AM EDT documented as of this encounter Care Teams Small Kick Press Operator Relationship Specialty Start Date End Date Name, MD Royal [address] [place] [address] PCP - General Family Medicine 11/21/15 documented as of this encounter
--- OUTSIDE RECORDS SUMMARY | 2025-05-16 08:04 | XMS_ITS | Encounter Summary ---
Author Organization [employer] Address [address] [facility] 7t [place] [address] Care Team Providers Care Chief Librarian Music Department Name Role Phone Name, Royal LEON Primary Care Provider [phone] Encounter Details Date Type Department Care Team (Late st Contact Info) Description 03/17/2024 Orders Only [facility] MEDICINE [address] [place] [address] Name, MD Royal [address] [place] [address] Social History Tobacco Use Types Packs/Day Years [...] Description 08/14/2025 1:00 PM EST Office Visit [facility] MEDICINE [address] [place] [address] Name, MD Royal [address] [place] [address] documented as of this encounter Visit Diagnoses Not on filedocumented in this encounter Additional Health Concerns Assessment Noted Time PHQ-9 Depression Total Score: 6 10/11/19 24 10:38 AM EDT documented as of this encounter Care Teams Chief Librarian Music Department Relationship Specialty Start Date End Date Name, MD Royal [address] [place] [address] PCP - General Family Medicine 11/21/15 documented as of this encounter
--- OUTSIDE RECORDS SUMMARY | 2025-05-16 08:04 | XMS_ITS | Clinical Summary ---
Author Organization [facility] it Address [address] [place] [address] Care Team Providers Care Technical Information Specialist Name Role Phone Name, Royal LEON Primary Care Provider [phone] Surgical History Surgery Date Site/Laterality Comments OTHER SURGICAL HISTORY PROCEDURE: [place] DILATION & CURETTAGE DX&/THER NONOBSTETRIC TUBAL LIGATION [...] RESULTING AGENCY - 10/05/2017 3:26 PM EDT [id number] THINPREP PAP, IMAGED: NEGATIVE FOR SQUAMOUS INTRAEPITHELIAL [...] DIAGNOSIS. HORMONES, POSITIVE, LMP 08/07/17 Manisha Petersen [facility] CYTOLOGY ORDERABLES Final R esult HISTORICAL TESTING LAB RESULTING AGENCY from Last 3 Months or Most Recently Relevant to Health Maintenance Care Teams Technical Information Specialist Relationship Specialty Start Date End Date Name, MD Royal 4 [facility] PCP - General Internal Medicine 12/04/15
--- OUTSIDE RECORDS SUMMARY | 2025-05-16 08:04 | XMS_ITS | Encounter Summary ---
Author Organization [employer] Address 75 [facility] 7t [place] [address] Care Team Providers Care Logistics Lead Name Role Phone Name, Royal LEON Primary Care Provider [phone] Reason for Visit * Reason Onset Date Comments Call Back Request 03/17/2024 Encounter Details Date Type Department Care Team ([facility] st Contact Info) Description 03/17/2024 Telephone [facility] MEDICINE [address] [place] [address] Name, MD Royal [address] [place] [address] Call Back Request Social History Tobacco Use [...] 03/17/2024 10:08 AM EDT Tc from [facility] was advised to return call documented in this encounter Plan of Treatment Upcoming Encounters Date Type Department Care Team (Late st Contact Info) Description 08/14/2025 1:00 PM EST Office Visit [facility] [address] [place] [address] Name, MD Royal [address] [place] [address] documented as of this encounter Visit Diagnoses Not on filedocumented in this encounter Additional Health Concerns Assessment Noted Time PHQ-9 Depression Total Score: 6 10/11/19 24 10:38 AM EDT documented as of this encounter Care Teams Logistics Lead Relationship Specialty Start Date End Date Name, MD Royal [address] [place] [address] PCP - General Family Medicine 11/21/15 documented as of this encounter
--- OUTSIDE RECORDS SUMMARY | 2025-05-16 08:04 | XMS_ITS | Encounter Summary ---
Author Organization [employer] [facility] Address [address] [place] [address] Care Team Providers Care Cable Puller Name Role Phone Name, Royal LEON Primary Care Provider [phone] Encounter Details Date Type Department Care Team (Late st Contact Info) Description 07/03/2022 [facility] Health Information Management [address] [place] [address] NameRoyal MD [address] [place] [address] Social History Tobacco Use Types Packs/Day Years [...] 1:00 PM EST Office Visit [facility] MEDICINE [address] [place] [phone] Name, MD Royal [address] [place] [phone] documented as of this encounter Visit Diagnoses Not on filedocumented in this encounter Care Teams Cable Puller Relationship Specialty Start Date End Date NameRoyal MD [address] [place] [address] [phone] PCP - General Family Medicine 11/21/15 documented as of this encounter
--- OUTSIDE RECORDS SUMMARY | 2025-05-16 08:04 | XMS_ITS | Encounter Summary ---
Author Organization [employer] Address 75 [facility] 7t [place] [address] Care Team Providers Care Lighting Specialist Name Role Phone Name, Royal LEON Primary Care Provider [phone] Reason for Visit * Reason Onset Date Comments Letter for School/Work 02/28/2024 Encounter Details Date Type Department Care Team ([facility] Contact Info) Description 02/28/2024 Telephone [facility] MEDICINE [address] [place], [place] [phone] Name, MD Royal [address] [place] [address] Letter for School/Work Social History Tobacco Use [...] 08/14/2025 1:00 PM EST Office Visit [facility] MEDICINE [address] [place] [address] Name, MD Royal [address] [place] [address] documented as of this encounter Visit Diagnoses Not on filedocumented in this encounter Additional Health Concerns Assessment Noted Time PHQ-9 Depression Total Score: 6 10/11/19 24 10:38 AM EDT documented as of this encounter Care Teams Lighting Specialist Relationship Specialty Start Date End Date Name, MD Royal [address] [place] [address] PCP - General Family Medicine 11/21/15 documented as of this encounter
--- OUTSIDE RECORDS SUMMARY | 2025-05-16 08:04 | XMS_ITS | Clinical Summary ---
Author Organization [employer] Address [address] [facility] [address] [place] [address] Care Team Providers Care Research Methodologist Name Role Phone Name, Royal LEON Primary Care Provider [phone] Allergies No known active allergies Medications * This document contains information received from the source organization and may not represent a complete record from that organization. Blood Pressure kitIndications: Elevated blood pressure reading 1 kit if needed each day (as needed for blood pressure). 1 kit 4 Active meclizine (Antivert) 12.5 MG tabletIndicatio ns:Dizziness Take 1 tablet (12.5 mg) by mouth every 6 (six) hours if needed for dizziness or nausea. 120 tablet 5 05/30/20 25 Active Ferrous Fumarate (Ferrocite) 324 (106 Fe) MG tabletIndicatio ns:Iron deficiency anemia due to chronic blood loss,Menorrhagi a with irregular cycle Take 1 tablet by mouth every other day. 30 tablet 5 06/13/20 25 Active traZODone (Desyrel) 50 MG tablet Take 1 tablet (50 mg) by mouth at bedtime. 30 tablet 4 05/07/20 25 Discontinu ed(Therapy completed) sertraline (Zoloft) 100 MG tablet Take 1 tablet (100 mg) by mouth Once per day. 30 tablet 4 05/07/20 25 Discontinu ed(Therapy completed) cyclobenzaprine (Flexeril) 10 MG tabletIndicatio ns:Acute left-sided low back pain without sciatica Take 1 tablet (10 mg) by mouth if needed in the morning, at noon, and at bedtime for muscle spasms for up to 10 days. 30 tablet 4 05/07/20 25 Discontinu ed(Therapy completed) ferrous gluconate (Fergon) 324 (38 Fe) MG tabletIndicatio ns:Iron deficiency anemia due to chronic blood loss Take 1 tablet (324 mg) by mouth every other day. 15 tablet 2 5 05/14/20 25 Discontinu ed(Therapy completed) Active Problems Problem Noted Date Diagnosed Date [...] anemia due to chronic blood loss 12/06/2015 Assessment & Plan (05/07/2025 9:28 AM EDT): - Iron deficiency noted in chart; not checked in over a year. - Ordered iron studies. If iron levels are low, referral to hematology will be considered. JIM (generalized anxiety disorder) 11/21/2015 Heartburn 11/21/2015 [...] Encounters Date Type Department Care Team Description 05/14/2025 2:30 PM EDT Office Visit [facility] [address] [place] [phone] Name, MD Royal Iron deficiency anemia due to chronic blood loss (Primary Dx); Menorrhagia with irregular cycle 05/14/2025 Travel 04/30/2025 1:40 PM EDT Office Visit [facility] [address] [place] [address] Gisell Matthew NP Dizziness (Primary Dx); Palpitations; Vertigo; Acute nonintractable headache, unspecified headache type; Iron deficiency anemia due to chronic blood loss 04/30/2025 Orders Only [facility] [address] [place] [phone] Gisell Matthew NP 04/30/2025 Results Follow-Up [facility] [address] [facility] [place] [address] Gisell Matthew NP POCT Urine , CBC auto differential, Iron And Total Iron Binding Capacity, TSH W/Reflex to FT4 04/30/2025 Travel 03/29/2025 Telephone [facility] [address] [facility] [place] [address] Name, MD Royal from Last 3 Months [...] is your housing situation today? I have berthalorenzo aden 05/14/[address] you [...] Mass Index 33.33 05/14/2025 2:34 PM EDT Plan of Treatment Upcoming Encounters Date Type Department Care Team (Late st Contact Info) Description 08/14/2025 1:00 PM EST Office Visit [facility] [address] [place] [phone] Name, MD Royal [address] [place] [address] Health Maintenance Due Date Last Done Comments Family Planning (PISQ) 2001 Hepatitis C Screening 2004 Hepatitis B Vaccines (3 of 3 - 19+ 3-dose series) 06/26/2016 01/23/2016, 12/26/2015 DTaP/Tdap/Td Vaccines (2 - Td or Tdap) 04/08/2020 04/08/2010 COVID-19 Vaccine ( season) 2025 12/30/2021, 12/30/2021, 12/09/2021, Additional history exists Influenza Vaccine (#1) 2025 , 06/11/2017, 06/11/2017 Cervical Cancer Screening 10/22/2025 HPV/Cotest 10/22/2025 10/22/2020 Pap Smear 10/22/2025 10/22/2020 Alcohol/Substance Use Screening 05/14/2026 05/14/2025 Depression Screening 05/14/2026 05/14/2025, 05/14/20 25 Disability Screening 05/14/2026 05/14/2025 SDOH Screening 05/14/2026 05/14/2025 Tobacco Screening 05/14/2026 05/14/2025 Zoster Vaccines (1 of 2) 2036 RSV [...] Procedure Name Priority Date/Time Associated Diagnosis Comments PATHOLOGIST REVIEW - CBC Routine 04/30/2025 2:26 PM EDT TSH W/REFLEX TO FT4 Routine 04/30/2025 2 :26 PM EDT Palpitations IRON AND TOTAL IRON [...] Recently Relevant to Health Maintenance Results * Pathologist Review - CBC (04/30/2025 2:26 PM EDT) Pathologist Review - CBC SEE NOTE [facility] Comment:- Microcytic and hyp ochromic anemia with anisocytosis:consider iron deficiency anemia, blood loss vs otheretiologies.- Mild leukocytosis.Reviewed by Serenity Rey MD 04/30/2025 2:26 PM EDT 04/30/2025 4:00 PM EDT us Gisell Matthew NP LAB BLOOD ORDERABLES Final Resu lt [facility] [address] [place] [address] [phone] * TSH W/Reflex to FT4 (04/30/2025 2:26 PM EDT) Pathologist [facility] TSH reflex Free T4 1.22 0.32 - 4.0 uIU/mL [facility] Blood Venous blood specimen / Unknown 04/30/2025 2:26 PM EDT 04/30/2025 4:03 PM EDT Gisell Matthew TRAY SERVER LAB BLOOD ORDERABLES Final Resu lt [facility] [address] [place] [address] [phone] * (ABNORMAL) CBC auto differential (04/30/2025 2:26 PM EDT) Pathologist [facility] White Blood Count 11.3(H) 4.8 - 10.8 X10*3/uL [facility] Red Blood Count 4.56 4.20 - 5.50 X10*6/uL [facility] Hemoglobin 8.8(L) 12.0 - 16.0 g/dl [facility] Hematocrit 29.0(L) 37.0 - 47.0 % [facility] Mean Corpuscular Volume 63.6(L) 80.0 - 98.0 fL [facility] Mean Corpuscular Hemoglobin 19.3(L) 27.0 - 33.0 pg [facility] Mean Corpuscular HGB Conc 30.3(L) 31.0 - 35.0 g/dl [facility] Red Cell Distribution Width 21.7(H) 11.0 - 16.0 % [facility] Platelet Count 347 160 - 400 X10*3/uL [facility] Mean Platelet Volume 9.1(L) 9.4 - 12.3 fL [facility] Neutrophils Percent Auto 76.7(H) 45 - 73 % [facility] Imm Gran Pct Auto 0.4 0.0 - 0.4 % [facility] Lymphocytes Percent Auto 15.2(L) 20 - 40 % [facility] Monocytes Percent Auto 6.8 2 - 11 % [facility] Eosinophils Percent Auto 0.4 0 - 4 % [facility] Basophils Percent Auto 0.5 0 - 2 % [facility] NRBC Pct Auto 0.0 0.0 - 0.2 /100WBC [facility] Neutrophils Absolute Auto 8.7(H) 2.0 - 8.3 x10*3/uL [facility] Imm Gran Abs Auto 0.05(H) 0.00 - 0.03 X10*3/uL [facility] Lymphocytes Absolute Auto 1.7 1.2 - 4.9 X10*3/uL [facility] Monocytes Absolute Auto 0.8 0.1 - 1.2 X10*3/uL [facility] Eosinophils Absolute Auto 0.0 0.0 - 0.4 X10*3/uL [facility] Basophils Absolute Auto 0.1 0.0 - 0.2 X10*3/uL [facility] NRBC Abs Auto 0.000 0.0 - 0.012 X10*3/uL [facility] Blood Venous blood specimen / Unknown 04/30/2025 2:26 PM EDT 04/30/2025 4:00 PM EDT Gisell Matthew TRAY SERVER LAB BLOOD ORDERABLES Final Resu lt [facility] [address] [place], [place] [phone] * (ABNORMAL) Iron And Total Iron Binding Capacity (04/30/2025 2:26 PM EDT) Iron 27(L) 30 - 160 mcg/dL [facility] Total Iron Binding Capacity 380 228 - 428 mcg/dL [facility] Percent Iron Saturation 7(L) 15 - 50 % [facility] Unsaturated Iron Binding 353 ug/dL [facility] Blood Venous blood specimen / Unknown 04/30/2025 2:26 PM EDT 04/30/2025 4:03 PM EDT us Gisell Appram TRAY SERVER LAB BLOOD ORDERABLES Final Resu lt [facility] [address] [place] [address] [phone] * POCT Urine (04/30/2025 1:40 PM EDT) Preg Test, Ur Negative Negative, Indeterminate, None Detected, Invalid, Specimen unsatisfactory for evaluation, Weakly Positive, 2+ QC Media Lot # [id number] Lot# Expiration Date [id number] Urine 04/30/2025 1:40 PM EDT Result [facility] TRAY SERVER POINT OF CARE TEST ENTER/EDIT O RDERABLES [...] purpose. For additional information please refer to http://education.Dibsie.Mangstor/faq/HTK447 (This link is being provided for informational/ educational purposes only.) The performance of this assay has not been clinically validated in patients less than 2 years old. 06/17/2022 3:31 PM EST Result [facility] Olga Lidia Marrero [facility] LAB BLOOD ORDERABLES Shannon l Result [facility] * THINPREP PAP (10/22/2020 11:42 AM EDT) Clinical Information: None given [facility] COMMENT SEE COMMENT [facility] [...] along with historic and current clinical information. In Tube Conversion Technician : SEE COMMENT [facility] Comment: DCR, CT(ASCP) CT screening location: [address] [address] Infection Shift in vaginal chapincito suggestive of bacterial vaginosis. [facility] Interpretation/R esult: Negative for intraepithelial lesion or malignancy. [facility] LMP: NONE [facility]IVEN [facility] Prev. BX: NONE [facility]IVEN [facility] Prev. PAP: NONE GIVEN [facility] SOURCE: None given [facility] Statement Of Adequacy: SEE COMMENT [facility] Comment: Satisfactory for evaluation. Endocervical/transformation zone component present. Age and/or menstrual status not provided 10/22/2020 11:4 2 AM EDT Olga Lidia ORDONEZ LAB PATHOLOGY ORDERABLES Final Result [facility] [address] * HPV mRNA E6/E7 (10/22/2020 11:42 AM EDT) HPV nRNA E6/E7 Not Detected Not Detected [facility] Comment: Methodology: Cartography Teacher-Mediated Amplification This assay detects E6/E7 viral messenger RNA (mRNA) from 14 high-risk HPV types (16,18,31,33,35,39,45,51,52,56,58,59,66,68). The analytical performance characteristics of this assay have been determined by [employer]. The modifications have not been cleared or approved by the FDA. This assay has been validated pursuant to the CLIA regulations and is used for clinical purposes. For additional information, please refer to http://education.Dibsie.com/faq/WAC138b8 (This link if provided for information/ educational purposes only.) 10/22/2020 11:4 2 AM EDT Olga Lidia Elida CN LAB BLOOD ORDERABLES Shannon sage Result [facility] [address] from Last 3 Months or Most Recently Relevant to Health Maintenance Insurance [employer] C3 Care Teams Research Methodologist Relationship Specialty Start Date End Date Name, MD Royal [address] [place] [phone] PCP - General Family Medicine 11/21/15
== END ==
LOC: HO.CARD 08:01
PROVIDERS: Visit Provider Nurse Practitioner
DX: R00.2 Palpitations (principal)
CPT/HCPCS: 93225

== ENCOUNTER → 2025-05-16 08:06 | Outpatient (BNV) | payer MEDICAID, SELFPAY | PROVIDERS: Visit Provider Internal Medicine | DX: I47.10 Supraventricular tachycardia, unspecified (principal) | CPT/HCPCS: 93227 ==